=== PATIENT | male | born 1940 | race Caucasian/White ===

== ENCOUNTER 2017-08-06 19:14 | Inpatient (IN) | payer MEDICARE ==
[~2017-08-06] VITALS: Ht 177.8 cm; Wt 107.2 kg
[~2017-08-06 19:14] MED LIST: ASPI81TA82 PO; CARV25TA PO; GLIM4TAB PO; GLUCTAB PO; HYDR-2768 PO; LANTUS2P SC; LEVO100T60 PO; LISI-363 PO; NOVOLOGP2 SC; OMEP20TA PO; SIMV20TA PO; SIMV5TAB3 PO; VITA200017 PO
[2017-08-06 19:31] VITALS: BP 151/79; PULSE 80; RESP 22; TEMP 98.8; O2SAT 93
[2017-08-06] MEDS ORDERED: HYDR25TA5 PO (20:13)
[2017-08-06] MEDS ORDERED: VITA200013 PO (20:13)
[2017-08-06] MEDS ORDERED: ASPI81CH CHEW (20:13)
[2017-08-06] MEDS ORDERED: LEVO125T4 PO (20:13)
[2017-08-06] MEDS ORDERED: OMEP20TA PO (20:13)
[2017-08-06] MEDS ORDERED: CARV25TA PO (20:13)
[2017-08-06] MEDS ORDERED: LISI-515 PO (20:13)
[2017-08-06] MEDS ORDERED: INSU1.2I SQ (20:13)
[2017-08-06] MEDS ORDERED: SIMV20TA PO (20:13)
[2017-08-06] MEDS ORDERED: GLIM4TAB PO (20:13)
[2017-08-06] MEDS ORDERED: METF1000 PO (20:13)
[2017-08-06] MEDS ORDERED: NOVOLOGP2 SQ (20:13)
[2017-08-06] MEDS ORDERED: LANTUS2P SQ (20:13)
[2017-08-06] MEDS ORDERED: ONDANSETRON HCL 4 MG/2 ML VIAL IVP ONE (20:15)
[2017-08-06] MEDS ORDERED: SODIUM CHLORID 0.9% 500 ML INJ 500 ML IV ONE ×2 (20:15→21:45)
--- NOTE | 2017-08-06 20:15 | PD ---
HPI Chief Complaint: GI Complaint Time Seen by Provider: 19:57 Travel History International Travel<30 days: No Contact w/Intl Traveler<30days: No Traveled to known affect area: No History of Present Illness HPI This is a 76-year-old male who has a history of diverticulosis who presents to the emergency department with left lower quadrant abdominal pain that started this morning, cramping, moderate severity, associated with multiple episodes of vomiting. He denies any fevers or chills and denies any diarrhea. He's never had pain like this before. He has had a cholecystectomy in the past. He says his pain is nearly subsided but he still feels very nauseous and his says he was dry heaving at home. PFSH Past Medical History Arthritis: Yes Asthma: No Blood Disorders: No Heart Rhythm Problems: No Cancer: Yes Cardiovascular Problems: Yes High Cholesterol: Yes Chemotherapy: Yes (NOV 2012) Chest Pain: No Congestive Heart Failure: No COPD: No Diabetes: Yes Endocrine: Yes Gastrointestinal Disorders: Yes GERD: No Genitourinary: Yes (PROTEIN IN URINE; RENAL INSUFFIENCEY) Hepatitis: No Hiatal Hernia: No Hypertension: Yes Immune Disorder: No Kidney Stones: No Musculoskeletal: Yes Neurologic: No Psychiatric: No Respiratory: Yes Myocardial Infarction: No Radiation Therapy: No Renal Failure: No Sleep Apnea: Yes Thyroid Disease: Yes Ulcer: No Past Surgical History Abdominal Surgery: Yes (GALL BLADDER) AICD: No Cardiac Surgery: No Ear Surgery: No Endocrine Surgery: No Eye Surgery: No Genitourinary Surgery: No Gynecologic Surgery: No Joint Replacement: No Oral Surgery: No Pacemaker: No Thoracic Surgery: No Other Surgery: Yes (GALL BLADER 03/17; BONE MARROW BIOPSIES (2); PORT INSERTION 11/19) Social History Alcohol Use: Yes (LAST USED 01/06/06) Tobacco Use: No Substance Use: No Allergies-Medications (Allergen,Severity, Reaction): Coded Allergies: No Known Allergies (Verified Allergy, Severe, 01/08/06) Reported Meds & Prescriptions Reported Meds & Active Scripts Active Reported Aspirin 81 Mg Chew 81 Mg CHEW DAILY Hydrochlorothiazide 25 Mg Tab 25 Mg PO DAILY Lisinopril 20 Mg Tab 20 Mg PO DAILY Novolog Inj (Insulin Aspart) 1,000 Unit/10 Ml Vial 22 Units SQ DAILY Carvedilol 25 Mg Tab 25 Mg PO DAILY Levothyroxine (Levothyroxine Sodium) 125 Mcg Tab 112 Mcg PO DAILY Omeprazole 20 Mg Tab 20 Mg PO DAILY Vitamin D (Cholecalciferol) 2,000 Unit Cap 1,000 PO DAILY Glimepiride 4 Mg Tab 4 Mg PO BIDAC Lantus Inj (Insulin Glargine) 1,000 Unit/10 Ml Vial 50 Units SQ HS Metformin (Metformin HCl) 1,000 Mg Tab 1,000 Mg PO HS With meals Simvastatin 20 Mg Tab 20 Mg PO BID [place] Solostar Pen Inj (Insulin Glargine) 300 Unit/Ml Pen 1 Units SQ Review of Systems Except as stated in HPI: all other systems reviewed are Neg Physical Exam Narrative GENERAL:Well appearing, no acute distress SKIN: Focused skin assessment warm and dry. HEAD: Atraumatic. Normocephalic. EYES: Pupils equal and round. No injection or drainage. ENT: Moist mucous membranes NECK: Trachea midline. CARDIOVASCULAR: Regular rate and rhythm. No murmur appreciated. RESPIRATORY: Clear to auscultation. Breath sounds equal bilaterally. GASTROINTESTINAL: Abdomen soft, tender to palpation in the left lower quadrant with no rebound or guarding. MUSCULOSKELETAL: No obvious deformities. NEUROLOGICAL: Awake and alert. No obvious cranial nerve deficits. Moving all extremities. PSYCHIATRIC: Appropriate mood and affect; insight and judgment normal. Data Data Last Documented VS Vital Signs Date Time Temp Pulse Resp B/P (MAP) Pulse Ox O2 Delivery O2 Flow Rate FiO2 08/06/17 21:12 73 18 176/82 (113) 94 Room Air 08/06/17 19:31 98.8 Orders Orders Complete Blood Count With Diff (08/06/17 20:12) Comprehensive Metabolic Panel (08/06/17 20:12) Lipase (08/06/17 20:12) Urinalysis - C+S If Indicated (08/06/17 20:12) Iv Access Insert/Monitor (08/06/17 20:12) Ecg Monitoring (08/06/17 20:12) Oximetry (08/06/17 20:12) Ondansetron Inj (Zofran Inj) (08/06/17 20:15) Sodium Chloride 0.9% Flush (Ns Flush) (08/06/17 20:15) Sodium Chlorid 0.9% 500 Ml Inj (Ns 500 M (08/06/17 20:15) Ct Abd/Pel W/O Iv Contrast (08/06/17 ) Carvedilol (Coreg) (08/06/17 21:45) Hydrochlorothiazide (Hydrodiuril) (08/06/17 21:45) Sodium Chlorid 0.9% 500 Ml Inj (Ns 500 M (08/06/17 21:45) Ciprofloxacin 400 Mg Premix (Cipro 400 M (08/06/17 22:15) Morphine Inj (Morphine Inj) (08/06/17 22:30) Ondansetron Inj (Zofran Inj) (08/06/17 22:30) Admit Order (Ed Use Only) (08/06/17 22:20) Labs Laboratory Tests Test 08/06/17 20:35 White Blood Count 17.6 TH/MM3 Red Blood Count 4.29 MIL/MM3 Hemoglobin 12.1 GM/DL Hematocrit 37.1 % Mean Corpuscular Volume 86.5 FL Mean Corpuscular Hemoglobin 28.2 PG Mean Corpuscular Hemoglobin Concent 32.5 % Red Cell Distribution Width 14.6 % Platelet Count 237 TH/MM3 Mean Platelet Volume 8.5 FL Neutrophils (%) (Auto) 87.3 % Lymphocytes (%) (Auto) 5.0 % Monocytes (%) (Auto) 6.3 % Eosinophils (%) (Auto) 0.2 % Basophils (%) (Auto) 1.2 % Neutrophils # (Auto) 15.4 TH/MM3 Lymphocytes # (Auto) 0.9 TH/MM3 Monocytes # (Auto) 1.1 TH/MM3 Eosinophils # (Auto) 0.0 TH/MM3 Basophils # (Auto) 0.2 TH/MM3 CBC Comment AUTO DIFF Differential Comment AUTO DIFF CONFIRMED Platelet Estimate NORMAL Platelet Morphology Comment CLUMPED Red Cell Morphology Comment NORMAL Blood Urea Nitrogen 33 MG/DL Creatinine 2.40 MG/DL Random Glucose 171 MG/DL Total Protein 6.6 GM/DL Albumin 3.2 GM/DL Calcium Level 7.7 MG/DL Alkaline Phosphatase 93 U/L Aspartate Amino Transf (AST/SGOT) 18 U/L Alanine Aminotransferase (ALT/SGPT) 18 U/L Total Bilirubin 0.5 MG/DL Sodium Level 137 MEQ/L Potassium Level 3.9 MEQ/L Chloride Level 99 MEQ/L Carbon Dioxide Level 30.1 MEQ/L Anion Gap 8 MEQ/L Estimat Glomerular Filtration Rate 26 ML/MIN Lipase 310 U/L MDM Medical Decision Making Medical Screen Exam Complete: Yes Emergency Medical Condition: Yes Interpretation(s) afebrile, no tachycardia, mild hypertension leukocytosis 87% neutrophils GFR is 26 down from a baseline of 46 Last 24 hours Impressions Abdomen/Pelvis CT 08/06/17 0000 Signed Impressions: Service Date/Time: Sunday, August 06, 2017 21:43 - CONCLUSION: 1. 4-5mm calculus in the proximal left ureter with mild hydronephrosis. 2. Mild diverticulosis. 3. 2 left renal calculi. Nate Celeste MD Differential Diagnosis Diverticulitis, nephrolithiasis, pyelonephritis, pancreatitis Narrative Course This is a 76-year-old male who presents to the emergency department with vomiting and abdominal discomfort for 12 hours. Patient was placed on a monitor and an IV was established. He was given IV hydration and antiemetics as well as pain control. Labs demonstrate a leukocytosis. Patient does have a history of CLL that this he says is above his baseline of about 11. Creatinine is 2.4 which is increased from his baseline of 1.[address] abdomen and pelvis demonstrates a 4-5 mm stone in the left ureter with hydronephrosis. Patient continued to vomit in the emergency department and had poorly controlled pain. I think he requires admission for symptomatic control and IV hydration. He was given a dose of ciprofloxacin empirically in the setting of leukocytosis. Physician Communication Physician Communication Discussed with Dr. cisneros Diagnosis Primary Impression: Nephrolithiasis Additional Impression: Acute renal insufficiency Admitting Information Admitting Physician Requests: Admit Darline Verduzco MD Aug 06, 2017 20:15
[2017-08-06 20:49] LABS: AUTOMATED NEUTROPHIL # 15.4 TH/MM3 (1.8-7.7); BASOPHIL # 0.2 TH/MM3 (0-0.2); BASOPHIL % 1.2 % (0.0-2.0); EOSINOPHIL % 0.2 % (0.0-4.0); HEMATOCRIT 37.1 % (39.0-51.0); LYMPHOCYTE # 0.9 TH/MM3 (1.0-4.8); MEAN CELL VOLUME 86.5 FL (80.0-100.0); MEAN CORPUSCULAR HEMOGLOBIN 28.2 PG (27.0-34.0); MEAN CORPUSCULAR HGB CONC 32.5 % (32.0-36.0); MONO % 6.3 % (0.0-8.0); NEUT % 87.3 % (16.0-70.0); PLATELET COUNT 237 TH/MM3 (150-450); RED BLOOD COUNT 4.29 MIL/MM3 (4.50-5.90); RED CELL DISTRIBUTION WIDTH 14.6 % (11.6-17.2); WHITE BLOOD COUNT 17.6 TH/MM3 (4.0-11.0)
[2017-08-06 20:58] LABS: CHLORIDE 99 MEQ/L (98-107); POTASSIUM 3.9 MEQ/L (3.5-5.1); SODIUM (NA) 137 MEQ/L (136-145)
[2017-08-06 21:02] LABS: ANION GAP 8 MEQ/L (5-15); BICARBONATE 30.1 MEQ/L (21.0-32.0); BLOOD UREA NITROGEN 33 MG/DL (7-18)
[2017-08-06 21:04] LABS: HEMO FLAGS AUTO DIFF
[2017-08-06 21:05] LABS: ALT (GPT) 18 U/L (12-78); AST (GOT) 18 U/L (15-37); GLOMERULAR FILTRATION RATE 26 ML/MIN (>89)
[2017-08-06 21:06] LABS: TOTAL BILIRUBIN ADULT 0.5 MG/DL (0.2-1.0)
[2017-08-06 21:08] LABS: ALKALINE PHOSPHATASE 93 U/L (45-117)
[2017-08-06 21:11] VITALS: RESP 18; O2SAT 94
[2017-08-06 21:12] VITALS: BP 176/82; PULSE 73; RESP 18; O2SAT 94
[2017-08-06] MEDS ORDERED: HYDROCHLOROTHIAZIDE 25 MG TAB PO ONE (21:45)
[2017-08-06] MEDS ORDERED: CARVEDILOL 12.5 MG TAB PO ONE (21:45)
[2017-08-06 22:00] LABS: PLATELET ESTIMATE SMEAR NORMAL (NORMAL); PLATELET MORPHOLOGY CLUMPED (NORMAL); SCAN/DIFF AUTO DIFF CONFIRMED
--- NOTE | 2017-08-06 22:04 | RADRPT ---
EXAM DATE/TIME: 08/06/2017 21:43 [facility] COMPARISON: No previous studies available for comparison. INDICATIONS : Nausea and vomiting x 12 hrs. LLQ pain. Patient states he is unable to urinate. ORAL CONTRAST: No oral contrast ingested. RADIATION DOSE: 24.62 CTDIvol (mGy) MEDICAL HISTORY : Diabetes mellitus type 2. Hypertension. Leukemia.CLL SURGICAL HISTORY : Cholecystectomy. CABG ENCOUNTER: Initial ACUITY: 1 day PAIN SCALE: 8/10 LOCATION: Left lower quadrant TECHNIQUE: Volumetric scanning of the abdomen and pelvis was performed. Using automated exposure control and ad justment of the mA and/or kV according to patient size, radiation dose was kept as low as reasonably achievable to obtain optimal diagnostic quality images. DICOM format image data is available electro nically for review and comparison. FINDINGS: LOWER LUNGS: The visualized lower lungs are clear. LIVER: Homogeneous density without lesion. There is no dilation of the biliary tree. Status post cholecyste ctomy. There are multiple calcified small granulomas. SPLEEN: Normal size without lesion. PANCREAS: Within normal limits. KIDNEYS: Normal in size and shape. There is no focal mass. There are small nonobstructing left renal calculi. There is a 4-5 mm calculus in the proximal left ureter with mild hydronephrosis. ADRENAL GLANDS: Within normal limits. VASCULAR: There is no aortic aneurysm. BOWEL/MESENTERY: The stomach, small bowel, and colon demonstrate no acute abnormality. Multiple diverticuli are presen t. There is no free intraperitoneal air or fluid. ABDOMINAL WALL: Within normal limits. RETROPERITONEUM: There is no lymphadenopathy. BLADDER: No wall thickening or mass. REPRODUCTIVE: Within normal limits. INGUINAL: There is no lymphadenopathy or hernia. MUSCULOSKELETAL: Within normal limits for patient age. CONCLUSION: 1. 4-5mm calculus in the proximal left ureter with mild hydronephrosis. 2. Mild diverticulosis. 3. 2 left renal calculi. Nate Celeste MD on August 06, 2017 at 21:59 Board Certified Radiologist. This report was verified electronically.
[2017-08-06] MEDS ORDERED: CIPROFLOXACIN 400 MG PREMIX 200 ML IV ONE (22:15)
[2017-08-06] MEDS ORDERED: ONDANSETRON HCL 4 MG/2 ML VIAL IV ONE (22:30)
[2017-08-06] MEDS ORDERED: NALOXONE HCL 0.4 MG/ML AMP IV PUSH PRN (22:30)
[2017-08-06] MEDS ORDERED: MORPHINE SULFATE 4 MG/ML INJ IV PUSH PRN ×2 (22:30)
[2017-08-06] MEDS ORDERED: MORPHINE SULFATE 4 MG/ML INJ IV PUSH ONE (22:30)
[2017-08-06] MEDS ORDERED: GLUCAGON 1 MG/ML VIAL OTHER PRN (22:45)
[2017-08-06] MEDS ORDERED: DEXTROSE 50% IN WATER 50 ML VIAL(D50) IV PUSH PRN (22:45)
[2017-08-06] MEDS: SODIUM CHLOR 0.9% 1000 ML INJ 1,000 ML IV SCH (23:40)
[2017-08-06] MEDS: ONDANSETRON HCL 4 MG/2 ML VIAL IV PUSH PRN (23:45)
[2017-08-07 00:35] VITALS: BP 153/79; PULSE 67; RESP 18; TEMP 97.2; O2SAT 90
[2017-08-07] MEDS: SODIUM CHLORIDE 0.9% FLUSH 10 ML FLUSH IV FLUSH PRN (02:07)
[2017-08-07] MEDS: ONDANSETRON HCL 4 MG/2 ML VIAL IV PUSH PRN (03:28)
[2017-08-07 03:42] LABS: BLOOD, URINE SMALL (NEG); GLUCOSE,URINE NEG (NEG); KETONE, URINE NEG (NEG); NITRITE,URINE NEG (NEG); PH, URINE 5.5 (5.0-8.5)
[2017-08-07 03:49] LABS: COMMENT (UR) CULT NOT INDICATED; CULTURE IF INDICATED CULT NOT INDICATED; RBC, URINE 0-3 /hpf (0-3); SQUAMOUS EPITHELIAL CELL URINE 0-5 /hpf (0-5); URINE COLOR YELLOW (YELLW/STRAW); WBC, URINE 0-2 /hpf (0-5)
[2017-08-07] MEDS ORDERED: LEVOTHYROXINE SODIUM 125 MCG TAB PO SCH (07:00)
[2017-08-07 07:15] LABS: AUTOMATED NEUTROPHIL # 14.3 TH/MM3 (1.8-7.7); BASOPHIL % 0.3 % (0.0-2.0); EOSINOPHIL % 0.3 % (0.0-4.0); HEMATOCRIT 33.9 % (39.0-51.0); HEMO FLAGS DIFF FINAL; LYMPH % 6.3 % (9.0-44.0); MEAN CELL VOLUME 85.7 FL (80.0-100.0); MEAN CORPUSCULAR HEMOGLOBIN 27.1 PG (27.0-34.0); MEAN CORPUSCULAR HGB CONC 31.6 % (32.0-36.0); MONO % 7.5 % (0.0-8.0); NEUT % 85.6 % (16.0-70.0); PLATELET COUNT 207 TH/MM3 (150-450); RED BLOOD COUNT 3.95 MIL/MM3 (4.50-5.90); WHITE BLOOD COUNT 16.5 TH/MM3 (4.0-11.0)
[2017-08-07 07:41] LABS: BICARBONATE 27.8 MEQ/L (21.0-32.0)
[2017-08-07] MEDS: INSULIN ASPART SUPPLEMENTAL SCALE SQ SCH ×4 (07:58→21:00)
[2017-08-07 08:00] VITALS: BP 134/69; PULSE 94; RESP 18; TEMP 97.1; O2SAT 96
[2017-08-07] MEDS: PRAVASTATIN SOD 40 MG TAB PO SCH ×2 (08:00→21:26)
[2017-08-07] MEDS: PANTOPRAZOLE SOD 20 MG DELAYED RELEASE TAB PO SCH ×2 (08:00→08:06)
[2017-08-07] MEDS: CARVEDILOL 12.5 MG TAB PO SCH (08:01)
[2017-08-07] MEDS: ASPIRIN 81 MG CHEW TAB CHEW SCH (08:01)
[2017-08-07] MEDS: SODIUM CHLOR 0.9% 1000 ML INJ 1,000 ML IV SCH ×2 (08:05→18:11)
--- NOTE | 2017-08-07 08:35 | MH ---
cc: RAYNE MULLINS M.D. DATE OF ADMISSION: 08/06/2017 PERTINENT HISTORY This is a 76-year-old white male who presented to the emergency room last evening with left lower quadrant abdominal pain and flank pain. It had started earlier that morning, he had several episodes of vomiting and he had no diarrhea, rectal bleeding, constipation. He has history of diverticulosis but no prior diverticulitis. In the ED he had a CAT scan that showed a 4-5 mm calculus in the proximal left ureter with mild hydronephrosis. He was admitted for pain control and because of the recurrent vomiting and being a little bit dehydrated. PAST MEDICAL HISTORY 1. Hypertension. 2. Hyper___ 3. Type 2 diabetes with diabetic nephropathy. 4. He has had coronary artery disease with prior AL and prior five vessel coronary artery bypass in 2005. 5. He has had mild bilateral carotid artery atherosclerosis. 6. He has gastroesophageal reflux disease. 7. Hypothyroidism. 8. Hyperlipidemia. 9. He has had history of colon polyps. 10. Diverticulosis. 11. Some thyroid nodules. 12. He has a history of CLL that he has been followed by Dr. Bhatti. 13. Stage III chronic kidney disease. He has had no stroke, no seizures. No peptic ulcer disease. No lung disease. PAST SURGICAL HISTORY 1. Five-vessel coronary artery bypass. 2. Laparoscopic cholecystectomy. 3. Tonsillectomy and adenoidectomy. 4. Left cataract extraction, lens implant. 5. Colonoscopy 03/17/2007 with two polyps removed. 6. Colonoscopy 04/06/2011 that showed some diverticulosis. ALLERGIES NIFEDIPINE CAUSED DIZZINESS. MEDICATIONS 1. Aspirin 81 mg a day. 2. Omeprazole 20 mg a day. 3. Carvedilol 25 mg daily. 4. Glimepiride 4 mg twice a day. 5. Hydrochlorothiazide 25 mg daily. 6. Levothyroxine 112 mcg one daily. 7. Lisinopril 20 mg a day. 8. Metformin 1000 mg twice a day. 9. He uses NovoLog insulin 22 units with breakfast, 24 units with his dinner. 10. He is on Toujeo Solostar 300 units per 3 mL, he takes 50 units at bedtime. 11. He is on vitamin D3 1000 units a day. 12. Simvastatin 20 mg a day. FAMILY HISTORY His father in his 80s of Parkinson's disease and also had colon cancer. His mother had heart disease and of that at 84. SOCIAL HISTORY He is . He quit smoking at age 40, smoked three packs a day for 20 years prior to quitting. He rarely has a glass of wine. 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 REVIEW OF SYSTEMS GENERAL: No fever, chills or sweats. HEENT: Without complaints. CARDIOVASCULAR: No chest pain, orthopnea, PND. PULMONARY: No cough, hemoptysis, wheezing. GI: Had the vomiting, no diarrhea, melena or rectal bleeding. Left flank and left lower quadrant pain. EXTREMITIES: Without swelling. No tenderness and no pain. SKIN: Without rash. NEURO: No focal signs or confusion. PHYSICAL EXAMINATION GENERAL: Well-developed, well-nourished white male who is in no distress. His pain has lessened. HEENT: Pupils equal. Sclerae nonicteric. Nose without lesion. Mouth without inflammation or lesion. NECK: Without JVD. No obvious bruits. HEART: Regular rate and rhythm. No murmur. LUNGS: Appear clear. ABDOMEN: Abdomen is soft, nontender, no masses. No rebound. EXTREMITIES: No edema. Pulses palpated. SKIN: Negative. NEURO: Oriented x3. Cranial nerves, motor sensory intact. LABORATORY DATA His white count was 17.6, hemoglobin 12.1, hematocrit 37.1, 87.3% neutrophils, 5% lymphs, platelets were normal. His sodium was 137, potassium 3.9, chloride 99, CO2 30.1. His BUN was 33, creatinine 2.40. His last one done as an outpatient his BUN was 25, creatinine 1.75 and GFR 37 then. His AST, ALT, alkaline phosphatase, bilirubin were normal. Total protein and albumin normal. IMAGING STUDIES CT scan as mentioned showed a 4-5 mm calculus in the proximal left ureter with mild hydronephrosis. There was mild diverticulosis and there is two left renal calculi. ASSESSMENT 1. Left ureteral calculus with mild hydronephrosis. 2. Persistent left renal calculi. 3. Acute on chronic kidney disease. 4. Stage III chronic kidney disease. 5. Type 2 diabetes mellitus with diabetic nephropathy. 6. Hypertension. 7. Hyperlipidemia. 8. Coronary artery disease with prior AL and prior five vessel coronary artery bypass. 9. Mild carotid artery atherosclerosis. 10. Erectile dysfunction. 11. Diverticulosis. 12. Gastroesophageal reflux disease. 13. Hyperlipidemia. 14. Hypothyroidism. 15. CLL. 16. History of colon polyps. 17. Vitamin D insufficiency. PLAN His pain seems to be improved but he has had morphine recently. He still has some nausea, he is on ondansetron for that. Will continue the IV fluids for now to correct his mild dehydration. His white count elevation as probably from stress reaction from his vomiting. His last white count done as an outpatient for monitoring of his CLL showed a white count 9.5 on 06/02/17. Will try him on some diet today and advance as tolerated. Will get a urology consult. Whenever his dehydration is improved and he is having no significant pain he can be discharged to follow up with urology for his renal calculi. We will just cover him with a sliding scale currently for his diabetes because of his nausea and he had not been eating yet. We will resume his home meds other than I did hold the hydrochlorothiazide in view of his dehydration. Will hold his diabetes pills and insulin for now since he will be on sliding scale. He was ordered SCDs and EUGENIE asif for DVT prophylaxis last night. MD MIGUEL Morales/PAULA /6:59 AM /7:56 AM
[2017-08-07] MEDS ORDERED: LISINOPRIL 20 MG TAB PO SCH (09:00)
--- NOTE | 2017-08-07 10:01 | RADRPT ---
EXAM DATE/TIME: 08/07/2017 09:44 [facility] COMPARISON: CT ABDOMEN & PELVIS W/O CONTRAST, August 06, 2017, 21:43. INDICATIONS : Calculi, admitted to hospital with severe left lower back pain MEDICAL HISTORY : Leukemia. Diabetes mellitus type II. SURGICAL HISTORY : CABG. ENCOUNTER: Subsequent ACUITY: 2 days PAIN SCORE: 0/10 LOCATION: Left lower quadrant low back FINDINGS: 2 supine frontal views of the abdomen demonstrate a 2 mm density overlying the left mid kidney likely representing one of the nonobstructing stones documented on yesterday's CT. The ureteral stones are not visualized on this examination. Kidneys are partially obscured by overlying bowel gas and stool. There are stable phleboliths in the inferior pelvis bilaterally. Cholecystectomy clips are present. P atient is post median sternotomy. CONCLUSION: Given the overlying bowel gas and stool along with patient body habitus along with the small size of the stones, the left ureteral stones are not visualized. If there is a current need to evaluate the p osition we could perform low dose CT. Agustin Reed MD on August 07, 2017 at 9:55 Board Certified Radiologist. This report was verified electronically.
[2017-08-07] MEDS: TAMSULOSIN HCL 0.4 MG CAP PO SCH (10:50)
[2017-08-07 12:00] VITALS: BP 121/65; PULSE 60; RESP 18; TEMP 96.9; O2SAT 95
--- NOTE | 2017-08-07 14:22 | MB ---
cc: TAMARA COBOS MD DATE OF CONSULTATION: 08/07/2017. REASON FOR CONSULTATION: 1. Left flank pain 2. Left proximal 4 mm ureteral stone with mild hydronephrosis. HISTORY OF PRESENT ILLNESS: The patient is a 76-year-old male with history of diabetes who presented to the emergency room last evening with complaints of left lower quadrant pain radiating to his flanks which started yesterday morning. He denies prior episodes of pain in the past. He describes the pain as sharp, shooting and stabbing and 8/10 at its worst. He also had several episodes of nausea and vomiting but denied any fevers, chills, dysuria, hematuria. He came to the emergency room where he had a CT scan which showed a 5 mm left proximal ureteral stone without hydronephrosis. He was admitted for pain control and urology was consulted. He denies prior history of kidney stones in the past but he has a significant family history of stones with both his brother having stones. He denies any baseline lower urinary tract symptoms. He has a good stream. He feels like he empties well. He gets up twice a night. He denies any history of urinary tract infections or family history of prostate cancer. He denies chest pain or shortness of breath. PAST MEDICAL HISTORY: 1. Hypertension. 2. Hyperlipidemia. 3. Type 2 diabetes. 4. Coronary artery disease. 5. History of myocardial infarction. 6. Gastroesophageal reflux disease (GERD). 7. Hypothyroidism. 8. Diverticulosis. 9. History of chronic lymphocytic leukemia. 10. Chronic kidney disease stage III. PAST SURGICAL HISTORY: 1. He has had a five-vessel coronary artery bypass. 2. Laparoscopic cholecystectomy. 3. Tonsillectomy and adenoidectomy. 4. Left cataract insertion. 5. Colonoscopy. ALLERGIES: 1. NIFEDIPINE. MEDICATIONS: 1. Aspirin. 2. Omeprazole. 3. Carvedilol. 4. Glimepiride. 5. Hydrochlorothiazide. 6. Levothyroxine. 7. Lisinopril. 8. Metformin. 9. NovoLog insulin. 10. Simvastatin. FAMILY HISTORY: There is a family history of Parkinson's disease and colon cancer. Denies any urolithiasis or genitourinary malignancy. SOCIAL HISTORY: He is . He quit smoking at age 40. He smoked three packs a day for 20 years. He has occasional alcohol. He denies illicit drugs. REVIEW OF SYSTEMS: See the history of present illness, otherwise all systems reviewed and otherwise negative. PHYSICAL EXAMINATION: VITAL SIGNS: Temperature 97.2, pulse 67, respirations 18, blood pressure 153/79, satting 98% on room air. GENERAL: In general, he is alert and oriented times three and in no apparent distress. He is a pleasant and cooperative gentleman. HEAD, EYES, EARS, NOSE, THROAT: Head is normocephalic and atraumatic. No scleral icterus. Extraocular muscles intact. NECK: The neck is supple. Trachea is midline. No jugular venous distention. SKIN: No ulcers or rashes seen. The mucous membranes are pink and moist. LUNGS: Clear to auscultation bilaterally. No wheezes, rales or rhonchi. HEART: Regular rate and rhythm. No murmurs, rubs or gallops. ABDOMEN: The abdomen is soft, nontender but distended and tympanic. Positive bowel sounds. No peritoneal signs. GENITOURINARY EXAM: His penis is uncircumcised. Testes descended bilaterally and normal in size and consistency without mass. No costovertebral angle tenderness bilaterally. RECTAL: Exam deferred at this time. EXTREMITIES: Nontender. No cyanosis, clubbing or edema. PSYCHIATRIC: Normal affect. NEUROLOGIC: Cranial nerves II through XII intact. Strength is 5/5 in all four extremities. LABS: Sodium of 136, potassium 4.0, chloride of 100, carbon dioxide 27.8, BUN 28, creatinine 2.7, glucose 176. White count ____, hemoglobin 10.7, hematocrit 33.9, platelet count 207,000. Urine just showed small blood. IMAGING STUDIES: CT of the abdomen and pelvis without contrast images were reviewed and I agree with the radiologist's report. The patient has an obstructing left proximal stone causing mild hydronephrosis as well as two small nonobstructing left renal stones causing diverticulosis. ASSESSMENT AND PLAN: The patient is a 76-year-old male with history of diabetes who presents with left flank pain and nausea and who was found to have an obstructing 5 mm left mid ureteral stone with acute renal failure. PLAN: 1. We will manage conservatively at this and give the patient a chance to pass the stone. 2. Will start him on Flomax and oral pain medications. 3. Will watch him very closely as if his creatinine continues to rise or his clinical condition deteriorates, then he will need a cystoscopy and left ureteral stent insertion during this admission. 4. Otherwise, as long as his pain remains well-controlled, he can follow up as an outpatient and the stone can be treated as an outpatient. MD NOVA Bruce/JULIÁN /1:25 PM /2:06 PM [facility]
[2017-08-07 16:00] VITALS: BP 154/77; PULSE 59; RESP 18; TEMP 97.3; O2SAT 94
[2017-08-07] MEDS: oxyCODONE/ACETAMINOPHEN 5 MG/325 MG TAB PO PRN ×2 (16:20→21:26)
[2017-08-07 20:00] VITALS: BP 176/90; PULSE 87; RESP 20; TEMP 98.1; O2SAT 94
[2017-08-07] MEDS: LISINOPRIL 20 MG TAB PO SCH (22:19)
[2017-08-08] VITALS: BP 117/63; PULSE 64; RESP 18; TEMP 98.1; O2SAT 93
[2017-08-08] MEDS: SODIUM CHLOR 0.9% 1000 ML INJ 1,000 ML IV SCH ×2 (03:05→14:51)
[2017-08-08] MEDS: oxyCODONE/ACETAMINOPHEN 5 MG/325 MG TAB PO PRN ×5 (03:05→20:03)
[2017-08-08 03:34] VITALS: BP 143/80; PULSE 64; RESP 20; TEMP 97.6; O2SAT 94
[2017-08-08] MEDS: ONDANSETRON HCL 4 MG/2 ML VIAL IV PUSH PRN ×4 (03:38→20:04)
[2017-08-08] MEDS: LEVOTHYROXINE SODIUM 112 MCG TAB PO SCH (05:45)
[2017-08-08 06:12] LABS: HEMATOCRIT 29.9 % (39.0-51.0); MEAN CELL VOLUME 86.4 FL (80.0-100.0); MEAN CORPUSCULAR HEMOGLOBIN 28.8 PG (27.0-34.0); MEAN CORPUSCULAR HGB CONC 33.3 % (32.0-36.0); PLATELET COUNT 178 TH/MM3 (150-450); RED BLOOD COUNT 3.46 MIL/MM3 (4.50-5.90); RED CELL DISTRIBUTION WIDTH 14.9 % (11.6-17.2); REVIEW FLAG FINAL; WHITE BLOOD COUNT 13.8 TH/MM3 (4.0-11.0)
[2017-08-08 06:19] LABS: POTASSIUM 3.8 MEQ/L (3.5-5.1)
[2017-08-08 07:01] LABS: BICARBONATE 27.8 MEQ/L (21.0-32.0)
--- NOTE | 2017-08-08 07:08 | HHI.PR ---
Subjective Remarks Still having some intermittent nausea and flank pain. Seen by urology yesterday. Objective Vitals Vital Signs Date Time Temp Pulse Resp B/P (MAP) Pulse Ox O2 Delivery O2 Flow Rate FiO2 08/08/17 03:34 97.6 64 20 143/80 (101) 94 08/08/17 00:00 98.1 64 18 117/63 (81) 93 08/07/17 20:00 98.1 87 20 176/90 (118) 94 08/07/17 16:00 97.3 59 18 154/77 (102) 94 08/07/17 12:00 96.9 60 18 121/65 (83) 95 08/07/17 08:00 97.1 94 18 134/69 (90) 96 Result Diagram: 08/08/17 0545 08/08/17 0545 Other Results Laboratory Tests Test 08/06/17 20:35 08/07/17 03:30 08/07/17 07:05 08/08/17 05:45 White Blood Count 17.6 TH/MM3 16.5 TH/MM3 13.8 TH/MM3 Red Blood Count 4.29 MIL/MM3 3.95 MIL/MM3 3.46 MIL/MM3 Hemoglobin 12.1 GM/DL 10.7 GM/DL 10.0 GM/DL Hematocrit 37.1 % 33.9 % 29.9 % Mean Corpuscular Volume 86.5 FL 85.7 FL 86.4 FL Mean Corpuscular Hemoglobin 28.2 PG 27.1 PG 28.8 PG Mean Corpuscular Hemoglobin Concent 32.5 % 31.6 % 33.3 % Red Cell Distribution Width 14.6 % 14.0 % 14.9 % Platelet Count 237 TH/MM3 207 TH/MM3 178 TH/MM3 Mean Platelet Volume 8.5 FL 8.1 FL 8.6 FL Neutrophils (%) (Auto) 87.3 % 85.6 % Lymphocytes (%) (Auto) 5.0 % 6.3 % Monocytes (%) (Auto) 6.3 % 7.5 % Eosinophils (%) (Auto) 0.2 % 0.3 % Basophils (%) (Auto) 1.2 % 0.3 % Neutrophils # (Auto) 15.4 TH/MM3 14.3 TH/MM3 Lymphocytes # (Auto) 0.9 TH/MM3 1.0 TH/MM3 Monocytes # (Auto) 1.1 TH/MM3 1.2 TH/MM3 Eosinophils # (Auto) 0.0 TH/MM3 0.0 TH/MM3 Basophils # (Auto) 0.2 TH/MM3 0.0 TH/MM3 CBC Comment AUTO DIFF DIFF FINAL Differential Comment AUTO DIFF CONFIRMED Platelet Estimate NORMAL Platelet Morphology Comment CLUMPED Red Cell Morphology Comment NORMAL Blood Urea Nitrogen 33 MG/DL 38 MG/DL Creatinine 2.40 MG/DL 2.70 MG/DL Random Glucose 171 MG/DL 176 MG/DL Total Protein 6.6 GM/DL Albumin 3.2 GM/DL Calcium Level 7.7 MG/DL 7.7 MG/DL Alkaline Phosphatase 93 U/L Aspartate Amino Transf (AST/SGOT) 18 U/L Alanine Aminotransferase (ALT/SGPT) 18 U/L Total Bilirubin 0.5 MG/DL Sodium Level 137 MEQ/L 136 MEQ/L 135 MEQ/L Potassium Level 3.9 MEQ/L 4.0 MEQ/L 3.8 MEQ/L Chloride Level 99 MEQ/L 100 MEQ/L 100 MEQ/L Carbon Dioxide Level 30.1 MEQ/L 27.8 MEQ/L Anion Gap 8 MEQ/L 8 MEQ/L Estimat Glomerular Filtration Rate 26 ML/MIN 23 ML/MIN Lipase 310 U/L Urine Color YELLOW Urine Turbidity CLEAR Urine pH 5.5 Urine Specific Banks 1.015 Urine Protein 300 OR GREATER mg/dL Urine Glucose (UA) NEG mg/dL Urine Ketones NEG mg/dL Urine Occult Blood SMALL Urine Nitrite NEG Urine Bilirubin NEG Urine Leukocyte Esterase NEG Urine RBC 0-3 /hpf Urine WBC 0-2 /hpf Urine Squamous Epithelial Cells 0-5 /hpf Microscopic Urinalysis Comment CULT NOT INDICATED Imaging Last Impressions Abdomen X-Ray 08/07/17 0000 Signed Impressions: Service Date/Time: Monday, August 07, 2017 09:44 - CONCLUSION: Given the overlying bowel gas and stool along with patient body habitus along with the small size of the stones, the left ureteral stones are not visualized. If there is a current need to evaluate the position we could perform low dose CT. Agustin Reed MD Abdomen/Pelvis CT 08/06/17 0000 Signed Impressions: Service Date/Time: Sunday, August 06, 2017 21:43 - CONCLUSION: 1. 4-5mm calculus in the proximal left ureter with mild hydronephrosis. 2. Mild diverticulosis. 3. 2 left renal calculi. Nate Celeste MD Objective Remarks Exam: WDWNWM in no distress HEENT: Pupils equal, no scleral icterus, mouth negative Heart: RRR Lungs: Clear Abdomen: soft, nontender Extremities: No edema Neuro: Alert, oriented. A/P Assessment and Plan Assessment: --Left ureteral calculus with mild hydronephrosis --Acute on chronic disease (history of stage 3 CKD) --Mild dehydration that was secondary to vomiting --Type 2 diabetes mellitus with nephropathy --Hypertension --Hyperlipidemia --Hypothyroidism --Coronary artery disease with prior [place]/prior CABG --CLL --GERD --Mild bilateral carotid artery atherosclerosis Plan: Continue IV fluids and monitoring of his kidney function He is on sliding scale insulin coverage currently for his diabetes. He may require a urinary procedure to extract the stone--as per Dr Mccartney. Continue current medications. He is on TEDS/SCDS for DVT prophylaxis Pb Oh MD Aug 08, 2017 07:08
[2017-08-08 08:00] VITALS: BP 145/84; PULSE 67; RESP 18; TEMP 97.4; O2SAT 92
[2017-08-08] MEDS: INSULIN ASPART SUPPLEMENTAL SCALE SQ SCH ×4 (08:00→20:12)
[2017-08-08] MEDS: PANTOPRAZOLE SOD 20 MG DELAYED RELEASE TAB PO SCH (08:15)
[2017-08-08] MEDS: PRAVASTATIN SOD 40 MG TAB PO SCH ×2 (08:15→20:04)
[2017-08-08] MEDS: LISINOPRIL 20 MG TAB PO SCH ×2 (08:15→20:05)
[2017-08-08] MEDS: TAMSULOSIN HCL 0.4 MG CAP PO SCH (08:16)
[2017-08-08] MEDS: CARVEDILOL 12.5 MG TAB PO SCH (08:16)
[2017-08-08] MEDS: ASPIRIN 81 MG CHEW TAB CHEW SCH (08:16)
[2017-08-08 08:27] LABS: CALCIUM-PROTEIN CORRECTED 7.5 MG/DL (8.5-10.1)
[2017-08-08 12:00] VITALS: BP 107/59; PULSE 56; RESP 18; TEMP 97.4; O2SAT 96
[2017-08-08 16:00] VITALS: BP 165/85; PULSE 70; RESP 20; TEMP 98.1; O2SAT 93
--- NOTE | 2017-08-08 16:47 | HHI.PR ---
Subjective Patient symptoms today had zee placed for urinary retention. c/o penile pain from catheter. Denies flank pain, nausea, vomiting, fevers. Percocet helps with pain. Objective Vital Signs Vital Signs Date Time Temp Pulse Resp B/P (MAP) Pulse Ox O2 Delivery O2 Flow Rate FiO2 08/08/17 12:00 97.4 56 18 107/59 (75) 96 08/08/17 08:00 97.4 67 18 145/84 (104) 92 08/08/17 03:34 97.6 64 20 143/80 (101) 94 08/08/17 00:00 98.1 64 18 117/63 (81) 93 08/07/17 20:00 98.1 87 20 176/90 (118) 94 Intake & Output 08/08/17 08/08/17 07:00 19:00 Intake Total 1440 ml 630 ml Output Total 325 ml 150 ml Balance 1115 ml 480 ml Intake Oral 240 ml 0 ml IV Total 1200 ml 630 ml Output Urine Total 325 ml 150 ml Bladder Scan Volume Amount 694 ml 999 ml # Voids 2 1 # Bowel Movements 0 0 Result Diagram: 08/08/17 0545 08/08/17 0545 Objective Remarks NAD. abd obese but soft zee clear Medications and IVs Current Medications Medications (Trade) Dose Ordered Sig/Carmelo Route Start Time Stop Time Status Last Admin (NS Flush) 2 ml UNSCH PRN IV FLUSH 08/06/17 20:15 08/07/17 02:07 (Zofran Inj) 4 mg Q4HR PRN IV PUSH 08/06/17 22:30 08/08/17 12:30 Sodium Chloride 1,000 ml @ 100 mls/hr Q10H IV 08/06/17 22:30 08/08/17 14:51 (NovoLOG SUPPLEMENTAL SCALE) 1 ACHS SLIDING SCALE SQ 08/07/17 08:00 08/08/17 12:27 (D50w (Vial) Inj) 50 ml UNSCH PRN IV PUSH 08/06/17 22:45 (Glucagon Inj) 1 mg UNSCH PRN OTHER 08/06/17 22:45 (Aspirin Chew) 81 mg DAILY CHEW 08/07/17 09:00 08/08/17 08:16 (Coreg) 25 mg DAILY PO 08/07/17 09:00 9/25/17 08:16 (Protonix) 20 mg DAILY PO 08/07/17 07:15 08/08/17 08:15 (Pravachol) 40 mg BID PO 08/07/17 09:00 08/08/17 08:15 (Flomax) 0.4 mg DAILY PO 08/07/17 10:00 08/08/17 08:16 (Percocet 5-325 Mg) 2 tab Q4H PRN PO 08/07/17 13:30 08/08/17 14:51 (Percocet 5-325 Mg) 1 tab Q4H PRN PO 08/07/17 13:30 (Prinivil) 20 mg BID PO 08/07/17 22:55 08/08/17 08:15 (Synthroid) 112 mcg DAILY@0600 PO 08/08/17 06:00 08/08/17 05:45 Assessment and Plan Assessment and Plan 76 yo male with left ureteral calculi, urinary retention, ARF -Continue zee catheter. Will void trial as outpatient. Already on Flomax for stones -Repeat BMP in a.m. -If he remains pain free and creatinine improves, then can d/c home and treated as outpatient. However, if Creatinine continues to rise or flank pain returns, will need cystoscopy, stent insertion. Ramiro Mccartney MD Aug 08, 2017 16:47
[2017-08-08 20:00] VITALS: BP 148/75; PULSE 71; RESP 18; TEMP 96.4; O2SAT 95
[2017-08-09] VITALS: BP 172/83; PULSE 72; RESP 20; TEMP 96.4; O2SAT 94
[2017-08-09] MEDS: ONDANSETRON HCL 4 MG/2 ML VIAL IV PUSH PRN ×2 (01:06→06:38)
[2017-08-09] MEDS: oxyCODONE/ACETAMINOPHEN 5 MG/325 MG TAB PO PRN ×3 (01:07→13:41)
[2017-08-09] MEDS: SODIUM CHLOR 0.9% 1000 ML INJ 1,000 ML IV SCH ×3 (01:07→23:04)
[2017-08-09] MEDS: LEVOTHYROXINE SODIUM 112 MCG TAB PO SCH (05:15)
--- NOTE | 2017-08-09 06:27 | HHI.PR ---
Subjective Remarks Pederson catheter placed yesterday because of urinary retention. He states his pain is not present now. Objective Vitals Vital Signs Date Time Temp Pulse Resp B/P (MAP) Pulse Ox O2 Delivery O2 Flow Rate FiO2 08/09/17 00:00 96.4 72 20 172/83 (112) 94 08/08/17 20:00 96.4 71 18 148/75 (99) 95 08/08/17 16:00 98.1 70 20 165/85 (111) 93 08/08/17 12:00 97.4 56 18 107/59 (75) 96 08/08/17 08:00 97.4 67 18 145/84 (104) 92 Result Diagram: 08/08/17 0545 08/08/17 0545 Other Results Laboratory Tests Test 08/07/17 07:05 08/08/17 05:45 White Blood Count 16.5 TH/MM3 13.8 TH/MM3 Red Blood Count 3.95 MIL/MM3 3.46 MIL/MM3 Hemoglobin 10.7 GM/DL 10.0 GM/DL Hematocrit 33.9 % 29.9 % Mean Corpuscular Volume 85.7 FL 86.4 FL Mean Corpuscular Hemoglobin 27.1 PG 28.8 PG Mean Corpuscular Hemoglobin Concent 31.6 % 33.3 % Red Cell Distribution Width 14.0 % 14.9 % Platelet Count 207 TH/MM3 178 TH/MM3 Mean Platelet Volume 8.1 FL 8.6 FL Neutrophils (%) (Auto) 85.6 % Lymphocytes (%) (Auto) 6.3 % Monocytes (%) (Auto) 7.5 % Eosinophils (%) (Auto) 0.3 % Basophils (%) (Auto) 0.3 % Neutrophils # (Auto) 14.3 TH/MM3 Lymphocytes # (Auto) 1.0 TH/MM3 Monocytes # (Auto) 1.2 TH/MM3 Eosinophils # (Auto) 0.0 TH/MM3 Basophils # (Auto) 0.0 TH/MM3 CBC Comment DIFF FINAL Differential Comment Blood Urea Nitrogen 38 MG/DL 36 MG/DL Creatinine 2.70 MG/DL 3.20 MG/DL Random Glucose 176 MG/DL 143 MG/DL Calcium Level 7.7 MG/DL 6.9 MG/DL Sodium Level 136 MEQ/L 135 MEQ/L Potassium Level 4.0 MEQ/L 3.8 MEQ/L Chloride Level 100 MEQ/L 100 MEQ/L Carbon Dioxide Level 27.8 MEQ/L 27.8 MEQ/L Anion Gap 8 MEQ/L 7 MEQ/L Estimat Glomerular Filtration Rate 23 ML/MIN 19 ML/MIN Total Protein 5.9 GM/DL Protein Corrected Calcium 7.5 MG/DL Lab today still pending. Imaging Last Impressions Abdomen X-Ray 08/07/17 0000 Signed Impressions: Service Date/Time: Monday, August 07, 2017 09:44 - CONCLUSION: Given the overlying bowel gas and stool along with patient body habitus along with the small size of the stones, the left ureteral stones are not visualized. If there is a current need to evaluate the position we could perform low dose CT. Agustin Reed MD Abdomen/Pelvis CT 08/06/17 0000 Signed Impressions: Service Date/Time: Sunday, August 06, 2017 21:43 - CONCLUSION: 1. 4-5mm calculus in the proximal left ureter with mild hydronephrosis. 2. Mild diverticulosis. 3. 2 left renal calculi. Nate Celeste MD Objective Remarks Exam: WDWNWM in no distress HEENT: Pupils equal, no scleral icterus, mouth negative Heart: RRR Lungs: Clear Abdomen: soft, nontender Extremities: No edema Neuro: Alert, oriented. A/P Assessment and Plan Assessment: --Left ureteral calculus with mild hydronephrosis --Acute on chronic disease (history of stage 3 CKD) --Mild dehydration that was secondary to vomiting --Type 2 diabetes mellitus with nephropathy --Hypertension --Hyperlipidemia --Hypothyroidism --Coronary artery disease with prior [place]/prior CABG --CLL --GERD --Mild bilateral carotid artery atherosclerosis --Hypocalcemia Plan: Continue IV fluids and monitoring of his kidney function He is on sliding scale insulin coverage currently for his diabetes. He may require a urinary procedure to extract the stone--as per Dr Mccartney. Continue current medications. He is on TEDS/SCDS for DVT prophylaxis Add Oscal 500mg twice a day Pb Oh MD Aug 09, 2017 06:27
[2017-08-09 06:47] LABS: AUTOMATED NEUTROPHIL # 10.1 TH/MM3 (1.8-7.7); BASOPHIL # 0.1 TH/MM3 (0-0.2); BASOPHIL % 0.7 % (0.0-2.0); EOSINOPHIL # 0.2 TH/MM3 (0-0.4); EOSINOPHIL % 1.8 % (0.0-4.0); HEMATOCRIT 29.6 % (39.0-51.0); HEMO FLAGS DIFF FINAL; LYMPH % 6.1 % (9.0-44.0); LYMPHOCYTE # 0.7 TH/MM3 (1.0-4.8); MEAN CELL VOLUME 85.1 FL (80.0-100.0); MEAN CORPUSCULAR HEMOGLOBIN 27.9 PG (27.0-34.0); MEAN CORPUSCULAR HGB CONC 32.8 % (32.0-36.0); MONO % 8.3 % (0.0-8.0); NEUT % 83.1 % (16.0-70.0); PLATELET COUNT 167 TH/MM3 (150-450); RED BLOOD COUNT 3.49 MIL/MM3 (4.50-5.90); RED CELL DISTRIBUTION WIDTH 14.3 % (11.6-17.2); WHITE BLOOD COUNT 12.1 TH/MM3 (4.0-11.0)
[2017-08-09 06:50] LABS: POTASSIUM 3.6 MEQ/L (3.5-5.1)
[2017-08-09 07:03] LABS: BICARBONATE 25.3 MEQ/L (21.0-32.0)
[2017-08-09 07:32] LABS: CALCIUM-PROTEIN CORRECTED 7.2 MG/DL (8.5-10.1)
[2017-08-09 08:00] VITALS: BP 200/98; PULSE 58; RESP 18; TEMP 97.8; O2SAT 92
[2017-08-09] MEDS: INSULIN ASPART SUPPLEMENTAL SCALE SQ SCH ×4 (08:00→20:35)
[2017-08-09 08:35] VITALS: PULSE 74; RESP 18
[2017-08-09] MEDS: ASPIRIN 81 MG CHEW TAB CHEW SCH (08:37)
[2017-08-09] MEDS: CARVEDILOL 12.5 MG TAB PO SCH (08:38)
[2017-08-09] MEDS: PRAVASTATIN SOD 40 MG TAB PO SCH ×2 (08:39→20:37)
[2017-08-09] MEDS: TAMSULOSIN HCL 0.4 MG CAP PO SCH (08:39)
[2017-08-09] MEDS: CALCIUM CARBONATE 1.25 GM (CA 500 MG) TAB PO SCH ×2 (08:39→20:36)
[2017-08-09] MEDS: LISINOPRIL 20 MG TAB PO SCH ×2 (08:40→20:37)
[2017-08-09] MEDS: PANTOPRAZOLE SOD 20 MG DELAYED RELEASE TAB PO SCH (08:40)
[2017-08-09 11:00] VITALS: BP 153/82; PULSE 68; RESP 18
--- NOTE | 2017-08-09 12:11 | PD.CONS ---
HPI Service Nephrology Consult Requested By Reason for Consult Acute on chronic kidney disease Primary Care Physician Pb Oh MD History of Present Illness Mr. Lin is a 76 year old male admitted on the of this month with left sided abdominal and left flank pain. On arrival to the ER, his creatinine was 2.4. It has progressively increased to 3.4 today. In 2012, his creatinine was 1.[address] of the abdomen and pelvis without IV contrast which revealed left ureteral obstructing stone 4.5 mm in diameter. He has been seen by Urology. Patient later developed urinary retention, relieved after placement of Pederson catheter. He does not think he has passed the stone. Review of Systems Constitutional: COMPLAINS OF: Fatigue, DENIES: Fever, Weight gain, Weight loss Cardiovascular: DENIES: Chest pain, Palpitations, Syncope, Dyspnea on Exertion Gastrointestinal: COMPLAINS OF: Abdominal pain, Constipation, Nausea, DENIES: Black stools, Bloody stools, Diarrhea, Difficulty Swallowing Musculoskeletal: DENIES: Joint pain, Muscle aches Immunologic/allergic: DENIES: Eczema Neurologic: DENIES: Paresthesias Psychiatric: DENIES: Confusion Past Family Social History Allergies: Coded Allergies: No Known Allergies (Verified Allergy, Severe, 01/08/06) Past Medical History 1. Hypertension. 2. Hyper___ 3. Type 2 diabetes with diabetic nephropathy. 4. He has had coronary artery disease with prior MD and prior five vessel coronary artery bypass in 2005. 5. He has had mild bilateral carotid artery atherosclerosis. 6. He has gastroesophageal reflux disease. 7. Hypothyroidism. 8. Hyperlipidemia. 9. He has had history of colon polyps. 10. Diverticulosis. 11. Some thyroid nodules. 12. He has a history of CLL that he has been followed by Dr. Bhatti. 13. Stage III chronic kidney disease. He has had no stroke, no seizures. No peptic ulcer disease. No lung disease. Past Surgical History 1. Five-vessel coronary artery bypass. 2. Laparoscopic cholecystectomy. 3. Tonsillectomy and adenoidectomy. 4. Left cataract extraction, lens implant. 5. Colonoscopy 03/17/2007 with two polyps removed. 6. Colonoscopy 04/06/2011 that showed some diverticulosis. Reported Medications 1. Aspirin 81 mg a day. 2. Omeprazole 20 mg a day. 3. Carvedilol 25 mg daily. 4. Glimepiride 4 mg twice a day. 5. Hydrochlorothiazide 25 mg daily. 6. Levothyroxine 112 mcg one daily. 7. Lisinopril 20 mg a day. 8. Metformin 1000 mg twice a day. 9. He uses NovoLog insulin 22 units with breakfast, 24 units with his dinner. 10. He is on Toujeo Solostar 300 units per 3 mL, he takes 50 units at bedtime. 11. He is on vitamin D3 1000 units a day. 12. Simvastatin 20 mg a day. Active Ordered Medications Current Medications Medications (Trade) Dose Ordered Sig/Carmelo Route Start Time Stop Time Status Last Admin (NS Flush) 2 ml UNSCH PRN IV FLUSH 08/06/17 20:15 08/07/17 02:07 (Zofran Inj) 4 mg Q4HR PRN IV PUSH 08/06/17 22:30 08/09/17 06:38 Sodium Chloride 1,000 ml @ 100 mls/hr Q10H IV 08/06/17 22:30 08/09/17 11:09 (NovoLOG SUPPLEMENTAL SCALE) 1 ACHS SLIDING SCALE SQ 08/07/17 08:00 08/08/17 12:27 (D50w (Vial) Inj) 50 ml UNSCH PRN IV PUSH 08/06/17 22:45 (Glucagon Inj) 1 mg UNSCH PRN OTHER 08/06/17 22:45 (Aspirin Chew) 81 mg DAILY CHEW 08/07/17 09:00 08/09/17 08:37 (Coreg) 25 mg DAILY PO 08/07/17 09:00 08/09/17 08:38 (Protonix) 20 mg DAILY PO 08/07/17 07:15 08/09/17 08:40 (Pravachol) 40 mg BID PO 08/07/17 09:00 08/09/17 08:39 (Flomax) 0.4 mg DAILY PO 08/07/17 10:00 08/09/17 08:39 (Percocet 5-325 Mg) 2 tab Q4H PRN PO 08/07/17 13:30 08/09/17 01:07 (Percocet 5-325 Mg) 1 tab Q4H PRN PO 08/07/17 13:30 08/09/17 06:37 (Prinivil) 20 mg BID PO 08/07/17 22:55 08/09/17 08:40 (Synthroid) 112 mcg DAILY@0600 PO 08/08/17 06:00 08/09/17 05:15 (Oscal) 500 mg Q12HR PO 08/09/17 09:00 08/09/17 08:39 Family History His father in his 80s of Parkinson's disease and also had colon cancer. His mother had heart disease and of that at 84. Social History He is . He quit smoking at age 40, smoked three packs a day for 20 years prior to quitting. He rarely has a glass of wine. 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 Physical Exam Vital Signs Vital Signs Date Time Temp Pulse Resp B/P (MAP) Pulse Ox O2 Delivery O2 Flow Rate FiO2 08/09/17 11:00 68 18 153/82 (105) 08/09/17 08:35 74 18 08/09/17 08:00 97.8 58 18 200/98 (132) 92 08/09/17 07:40 17 08/09/17 00:00 96.4 72 20 172/83 (112) 94 08/08/17 20:00 96.4 71 18 148/75 (99) 95 08/08/17 16:00 98.1 70 20 165/85 (111) 93 Physical Exam GENERAL: elderly male, he is obese, alert and oriented. SKIN: Warm and dry. HEAD: Normocephalic. EYES: No scleral icterus. No injection or drainage. NECK: Supple, trachea midline. No JVD or lymphadenopathy. CARDIOVASCULAR: Regular rate and rhythm without murmurs, gallops, or rubs. RESPIRATORY: Breath sounds equal bilaterally. No accessory muscle use. GASTROINTESTINAL: Abdomen is distended, firm. Non tender. Positive bowel sounds. MUSCULOSKELETAL: No cyanosis, or edema. BACK: Nontender without obvious deformity. No CVA tenderness. Laboratory Laboratory Tests Test 08/09/17 06:10 White Blood Count 12.1 Red Blood Count 3.49 Hemoglobin 9.7 Hematocrit 29.6 Mean Corpuscular Volume 85.1 Mean Corpuscular Hemoglobin 27.9 Mean Corpuscular Hemoglobin Concent 32.8 Red Cell Distribution Width 14.3 Platelet Count 167 Mean Platelet Volume 8.4 Neutrophils (%) (Auto) 83.1 Lymphocytes (%) (Auto) 6.1 Monocytes (%) (Auto) 8.3 Eosinophils (%) (Auto) 1.8 Basophils (%) (Auto) 0.7 Neutrophils # (Auto) 10.1 Lymphocytes # (Auto) 0.7 Monocytes # (Auto) 1.0 Eosinophils # (Auto) 0.2 Basophils # (Auto) 0.1 CBC Comment DIFF FINAL Differential Comment Blood Urea Nitrogen 40 Creatinine 3.40 Random Glucose 113 Total Protein 5.7 Calcium Level 6.5 Sodium Level 138 Potassium Level 3.6 Chloride Level 103 Carbon Dioxide Level 25.3 Anion Gap 10 Estimat Glomerular Filtration Rate 18 Protein Corrected Calcium 7.2 Result Diagram: 08/09/1760908/09/17609 Assessment and Plan Problem List: (1) Acute kidney injury ICD Codes: N17.9 - Acute kidney failure, unspecified Plan: Patient appears to have underlying stage III CKD, perhaps due to diabetic nephropathy. SULY is due to left ureteral obstruction and obstructive uropathy. He also had developed urinary retention, now has a Pederson catheter, however renal function has not improved. Urology on the case. It does not appear that he has passed the kidney stone. Repeat labs tomorrow, and if renal function has not improved, he will benefit from cystoscopy and ureteral stent placement. Avoid nephrotoxic agents. Reduce IVF. Monitor urine output and renal function. (2) Nephrolithiasis ICD Codes: N20.0 - Calculus of kidney Status: Acute Plan: See above. Urology following. Send stone for analysis if possible. Ureteral stent placement may be necessary if renal function continues to decline. (3) Type 2 diabetes mellitus with complications ICD Codes: E11.8 - Type 2 diabetes mellitus with unspecified complications Plan: he does have proteinuria, likely has diabetic nephropathy. Insulin coverage to maintain blood glucose between 140 and 180 while hospitalized. (4) Essential (primary) hypertension ICD Codes: I10 - Essential (primary) hypertension Plan: BP is high, could be secondary to pain and discomfort. I have added Hydralazine. Monitor. Assessment and Plan Thanks for the consult. Patient reports that he has seen Dr. Coleman in the past, I will request Dr. Coleman to follow him from tomorrow. Nic Mckeon MD Aug 09, 2017 12:11
[2017-08-09] MEDS ORDERED: BISACODYL 10 MG SUPP RECTAL PRN (15:15)
[2017-08-09 15:31] VITALS: BP 168/92; PULSE 63; RESP 18
[2017-08-09] MEDS: hydrALAZINE HCL 25 MG TAB PO SCH ×2 (15:41→20:37)
--- NOTE | 2017-08-09 17:43 | HHI.PR ---
Subjective Patient symptoms today denies flank pain. c/o constipation. Denies fevers, chills, nausea. Objective Vital Signs Vital Signs Date Time Temp Pulse Resp B/P (MAP) Pulse Ox O2 Delivery O2 Flow Rate FiO2 08/09/17 15:31 63 18 168/92 (117) 08/09/17 14:41 18 08/09/17 11:00 68 18 153/82 (105) 08/09/17 08:35 74 18 08/09/17 08:00 97.8 58 18 200/98 (132) 92 08/09/17 00:00 96.4 72 20 172/83 (112) 94 08/08/17 20:00 96.4 71 18 148/75 (99) 95 Intake & Output 08/09/17 08/09/17 06:59 18:59 Intake Total 1022 ml Output Total 400 ml 500 ml Balance 622 ml -500 ml IV Total 1022 ml Output Urine Total 400 ml 500 ml Result Diagram: 08/09/1760908/09/17609 Objective Remarks NAD. abd obese but soft zee clear Medications and IVs Current Medications Medications (Trade) Dose Ordered Sig/Carmelo Route Start Time Stop Time Status Last Admin (NS Flush) 2 ml UNSCH PRN IV FLUSH 08/06/17 20:15 08/07/17 02:07 (Zofran Inj) 4 mg Q4HR PRN IV PUSH 08/06/17 22:30 08/09/17 06:38 Sodium Chloride 1,000 ml @ 70 mls/hr [id number] IV 08/06/17 22:30 08/09/17 11:09 (NovoLOG SUPPLEMENTAL SCALE) 1 ACHS SLIDING SCALE SQ 08/07/17 08:00 08/08/17 12:27 (D50w (Vial) Inj) 50 ml UNSCH PRN IV PUSH 08/06/17 22:45 (Glucagon Inj) 1 mg UNSCH PRN OTHER 08/06/17 22:45 (Aspirin Chew) 81 mg DAILY CHEW 08/07/17 09:00 08/09/17 08:37 (Coreg) 25 mg DAILY PO 08/07/17 09:00 08/09/17 08:38 (Protonix) 20 mg DAILY PO 08/07/17 07:15 08/09/17 08:40 (Pravachol) 40 mg BID PO 08/07/17 09:00 08/09/17 08:39 (Flomax) 0.4 mg DAILY PO 08/07/17 10:00 08/09/17 08:39 (Percocet 5-325 Mg) 2 tab Q4H PRN PO 08/07/17 13:30 08/09/17 01:07 (Percocet 5-325 Mg) 1 tab Q4H PRN PO 08/07/17 13:30 08/09/17 13:41 (Prinivil) 20 mg BID PO 08/07/17 22:55 08/09/17 08:40 (Synthroid) 112 mcg DAILY@0600 PO 08/08/17 06:00 08/09/17 05:15 (Oscal) 500 mg Q12HR PO 08/09/17 09:00 08/09/17 08:39 (Apresoline) 25 mg Q8HR PO 08/09/17 15:00 08/09/17 15:41 (Dulcolax Supp) 10 mg DAILY PRN RECTAL 08/09/17 15:15 08/09/17 15:52 Assessment and Plan Assessment and Plan 76 yo male with left ureteral calculi, urinary retention, ARF -Despite being pain free, his Creatinine continues to rise. -Due to persistent renal failure, he has been added to OR schedule tomorrow () for cystoscopy, left retrograde pyelogram, left ureteral stent insertion. Ramiro Mccartney MD Aug 09, 2017 17:43
[2017-08-09 20:00] VITALS: BP 177/86; PULSE 72; RESP 22; TEMP 97; O2SAT 92
[2017-08-10] VITALS (8 sets, daily range): BP systolic 150–163; BP diastolic 70–86; PULSE 64–73; RESP 18–21; TEMP 96.1–98.4; O2SAT 91–96
[2017-08-10] MEDS: hydrALAZINE HCL 25 MG TAB PO SCH ×3 (05:22→21:05)
[2017-08-10] MEDS: LEVOTHYROXINE SODIUM 112 MCG TAB PO SCH (05:22)
--- NOTE | 2017-08-10 06:29 | HHI.PR ---
Subjective Remarks Still has flank pain. He states he has had a little wheezing during the night. He is going for urological procedure today to try to remove the stone. Objective Vitals Vital Signs Date Time Temp Pulse Resp B/P (MAP) Pulse Ox O2 Delivery O2 Flow Rate FiO2 08/10/17 00:00 98.1 71 21 163/86 (111) 91 08/09/17 20:00 97.0 72 22 177/86 (116) 92 08/09/17 15:31 63 18 168/92 (117) 08/09/17 14:41 18 08/09/17 11:00 68 18 153/82 (105) 08/09/17 08:35 74 18 08/09/17 08:00 97.8 58 18 200/98 (132) 92 Result Diagram: 08/09/17 0610 08/09/17 0610 Other Results Laboratory Tests Test 08/09/17 06:10 White Blood Count 12.1 TH/MM3 Red Blood Count 3.49 MIL/MM3 Hemoglobin 9.7 GM/DL Hematocrit 29.6 % Mean Corpuscular Volume 85.1 FL Mean Corpuscular Hemoglobin 27.9 PG Mean Corpuscular Hemoglobin Concent 32.8 % Red Cell Distribution Width 14.3 % Platelet Count 167 TH/MM3 Mean Platelet Volume 8.4 FL Neutrophils (%) (Auto) 83.1 % Lymphocytes (%) (Auto) 6.1 % Monocytes (%) (Auto) 8.3 % Eosinophils (%) (Auto) 1.8 % Basophils (%) (Auto) 0.7 % Neutrophils # (Auto) 10.1 TH/MM3 Lymphocytes # (Auto) 0.7 TH/MM3 Monocytes # (Auto) 1.0 TH/MM3 Eosinophils # (Auto) 0.2 TH/MM3 Basophils # (Auto) 0.1 TH/MM3 CBC Comment DIFF FINAL Differential Comment Blood Urea Nitrogen 40 MG/DL Creatinine 3.40 MG/DL Random Glucose 113 MG/DL Total Protein 5.7 GM/DL Calcium Level 6.5 MG/DL Sodium Level 138 MEQ/L Potassium Level 3.6 MEQ/L Chloride Level 103 MEQ/L Carbon Dioxide Level 25.3 MEQ/L Anion Gap 10 MEQ/L Estimat Glomerular Filtration Rate 18 ML/MIN Protein Corrected Calcium 7.2 MG/DL Lab today pending Imaging Last Impressions Abdomen X-Ray 08/07/17 0000 Signed Impressions: Service Date/Time: Monday, August 07, 2017 09:44 - CONCLUSION: Given the overlying bowel gas and stool along with patient body habitus along with the small size of the stones, the left ureteral stones are not visualized. If there is a current need to evaluate the position we could perform low dose CT. Agustin Reed MD Abdomen/Pelvis CT 08/06/17 0000 Signed Impressions: Service Date/Time: Sunday, August 06, 2017 21:43 - CONCLUSION: 1. 4-5mm calculus in the proximal left ureter with mild hydronephrosis. 2. Mild diverticulosis. 3. 2 left renal calculi. Nate Celeste MD Objective Remarks Exam: WDWNWM in no distress HEENT: Pupils equal, no scleral icterus, mouth negative Heart: RRR Lungs: Some faint inspiratory and expiratory wheezes Abdomen: soft, nontender Extremities: No edema Neuro: Alert, oriented. A/P Assessment and Plan Assessment: --Left ureteral calculus with mild hydronephrosis --Acute on chronic disease (history of stage 3 CKD)--renal was consulted on 08-09 because of decline in renal function --Mild dehydration that was secondary to vomiting --Type 2 diabetes mellitus with nephropathy --Hypertension --Hyperlipidemia --Hypothyroidism --Coronary artery disease with prior [place]/prior CABG --CLL --GERD --Mild bilateral carotid artery atherosclerosis --Hypocalcemia --Wheezing Plan: Continue IV fluids and monitoring of his kidney function He is on sliding scale insulin coverage currently for his diabetes. He is going for a urinary procedure to extract the stone today by Dr Mccartney Continue current medications. He is on TEDS/SCDS for DVT prophylaxis I will give him some Duoneb treatments for his wheezing and do a chest x-ray Pb Oh MD Aug 10, 2017 06:29
[2017-08-10 07:22] LABS: AUTOMATED NEUTROPHIL # 12.1 TH/MM3 (1.8-7.7); BASOPHIL % 0.1 % (0.0-2.0); EOSINOPHIL # 0.1 TH/MM3 (0-0.4); HEMATOCRIT 30.7 % (39.0-51.0); LYMPH % 3.9 % (9.0-44.0); LYMPHOCYTE # 0.5 TH/MM3 (1.0-4.8); MEAN CELL VOLUME 86.2 FL (80.0-100.0); MEAN CORPUSCULAR HEMOGLOBIN 27.6 PG (27.0-34.0); MONO % 8.5 % (0.0-8.0); NEUT % 86.5 % (16.0-70.0); PLATELET COUNT 183 TH/MM3 (150-450); RED BLOOD COUNT 3.57 MIL/MM3 (4.50-5.90); RED CELL DISTRIBUTION WIDTH 14.1 % (11.6-17.2); WHITE BLOOD COUNT 13.9 TH/MM3 (4.0-11.0)
[2017-08-10 07:26] LABS: HEMO FLAGS DIFF FINAL
[2017-08-10 07:33] LABS: POTASSIUM 3.5 MEQ/L (3.5-5.1)
[2017-08-10 07:40] LABS: BICARBONATE 22.7 MEQ/L (21.0-32.0)
[2017-08-10 08:02] LABS: CALCIUM-PROTEIN CORRECTED 7.4 MG/DL (8.5-10.1)
[2017-08-10] MEDS: ONDANSETRON HCL 4 MG/2 ML VIAL IV PUSH PRN (08:15)
[2017-08-10] MEDS: INSULIN ASPART SUPPLEMENTAL SCALE SQ SCH ×4 (08:18→21:00)
--- NOTE | 2017-08-10 08:42 | RADRPT ---
EXAM DATE/TIME: 08/10/2017 08:14 [facility] COMPARISON: CHEST SINGLE AP, January 23, 2013, 15:30. INDICATIONS : Short of breath. MEDICAL HISTORY : Hypertension. Diabetes mellitus type II. Leukemia. SURGICAL HISTORY : CABG. Cholecystectomy. ENCOUNTER: Subsequent ACUITY: 3 days PAIN SCORE: 0/10 LOCATION: Bilateral chest FINDINGS: Stable right IJ [id number]. Diffuse interstitial prominence. Mild airspace disease in the left low er lung zone with associated mild volume loss. Continued blunting of the left costophrenic sulcus whi ch may reflect trace fluid or pleural thickening. Cardiomediastinal contours are stable. Remainder of exam is unchanged. CONCLUSION: 1. Mild positive fluid balance. 2. Mild left lower lobe airspace disease, likely atelectasis. 3. Stable trace left pleural effusion versus pleural thickening. Andres Hall MD on August 10, 2017 at 8:38 Board Certified Radiologist. This report was verified electronically.
[2017-08-10] MEDS: CALCIUM CARBONATE 1.25 GM (CA 500 MG) TAB PO SCH ×3 (09:20→17:11)
[2017-08-10] MEDS: PANTOPRAZOLE SOD 20 MG DELAYED RELEASE TAB PO SCH (09:20)
[2017-08-10] MEDS: TAMSULOSIN HCL 0.4 MG CAP PO SCH (09:20)
[2017-08-10] MEDS: PRAVASTATIN SOD 40 MG TAB PO SCH ×2 (09:20→21:05)
[2017-08-10] MEDS: LISINOPRIL 20 MG TAB PO SCH ×2 (09:20→21:16)
[2017-08-10] MEDS: CARVEDILOL 12.5 MG TAB PO SCH (09:20)
[2017-08-10] MEDS: ASPIRIN 81 MG CHEW TAB CHEW SCH (09:20)
[2017-08-10] MEDS ORDERED: PROPOFOL 200 MG/20 ML AMP IV ONE (12:00)
[2017-08-10] MEDS ORDERED: CIPROFLOXACIN 400 MG PREMIX 200 ML ONE (12:40)
[2017-08-10] MEDS: CIPROFLOXACIN/DEXT 200 MG/100 ML IV ONE ×2 (12:50→14:08)
--- NOTE | 2017-08-10 13:15 | PD.OP ---
Operative Report Date of Surgery: Aug 10, 2017 Preoperative Diagnosis: Left ureteral calculus with mild hydronephrosis ARF paraphimosis Postoperative Diagnosis: Procedure: cystoscopy, left retrograde pyelogram, left ureteral stent insertion, reduction of paraphimosis Surgeon: Ramiro Mccartney Instrument Operator(s): n/a Operation and Findings: significant hydronephrosis on retrograde pyelogram, left ureteral stent placed without difficulty Also had paraphimosis, which was reduced. Ramiro Mccartney MD Aug 10, 2017 13:15
[2017-08-10] MEDS ORDERED: IOHEXOL 350 MG/ML 50 ML BTL (for RAD DIAG) OTHER ONE (13:49)
[2017-08-10] MEDS: SODIUM CHLOR 0.9% 1000 ML INJ 1,000 ML IV SCH (14:47)
[2017-08-10] MEDS ORDERED: FUROSEMIDE 40 MG/4 ML VIAL IV PUSH ONE (16:00)
[2017-08-10] MEDS: RESP: ALBUTEROL 2.5 MG/IPRATROPIUM 0.5 MG NEB (PRN) NEB (16:53)
--- NOTE | 2017-08-10 17:52 | HHI.NPPN ---
Subjective History of Present Illness 76 year old male with ARF/ckd s/p stent Left for kidney stones Review of Systems General Constitutional: Fatigue Objective Data Data 08/10/17 08/11/17 19:00 07:00 Intake Total 1076 ml Output Total 950 ml Balance 126 ml Intake Oral 0 ml IV Total 576 ml Other 500 ml Output Urine Total 950 ml Bladder Scan Volume Amount 999 ml 999 ml # Bowel Movements 4 Vital Signs Date Time Temp Pulse Resp B/P (MAP) Pulse Ox O2 Delivery O2 Flow Rate FiO2 08/10/17 16:57 95 Nasal Cannula 2.00 08/10/17 16:00 96.1 64 20 151/70 (97) 95 08/10/17 15:13 94 Nasal Cannula 2.00 08/10/17 14:00 97.8 67 14 140/67 (91) 98 Nasal Cannula 2 08/10/17 13:45 67 14 123/63 (83) 92 Nasal Cannula 2 08/10/17 13:40 67 14 128/62 (84) 96 Nasal Cannula 2 08/10/17 13:30 98.5 65 14 83/47 (59) 93 Nasal Cannula 2 08/10/17 13:30 65 08/10/17 12:10 100 Nasal Cannula 2 08/10/17 12:06 98.0 73 20 153/83 (106) 100 08/10/17 08:00 98.0 73 20 153/83 (106) 93 08/10/17 00:00 98.1 71 21 163/86 (111) 91 08/09/17 20:00 97.0 72 22 177/86 (116) 92 -: 08/10/17 0640 08/10/17 0640 Physical Exam General Appearance: Well Developed, Well Nourished Neck Neck Exam: Neck Supple Pulmonary Resp Exam: Clear Bilaterally, Breath Sounds Equal Cardiology CV Exam: Regular, Normal Sinus Rhythm Gastrointestinal/Abdomen GI Exam: Soft, Distended Integumentary Skin Exam: Clear Extremeties Extremities Exam: No Edema, Pedal Pulses Palpable Assessment/Plan Problem List: (1) Acute kidney injury ICD Codes: N17.9 - Acute kidney failure, unspecified Plan: Patient appears to have underlying stage III CKD, due to diabetic nephropathy. SULY is due to left ureteral obstruction and obstructive uropathy. Cr 3.5 underwent cystoscopy and L stent placement good UOP follow BMP if Cr declines can be followed as out pt drink water (2) Nephrolithiasis ICD Codes: N20.0 - Calculus of kidney Status: Acute Plan: See above. Urology following. Ureteral stent was placed Left (3) Type 2 diabetes mellitus with complications ICD Codes: E11.8 - Type 2 diabetes mellitus with unspecified complications Plan: he does have proteinuria, likely has diabetic nephropathy. Insulin coverage to maintain blood glucose between 140 and 180 while hospitalized. (4) Essential (primary) hypertension ICD Codes: I10 - Essential (primary) hypertension Plan: BP is high, could be secondary to pain and discomfort. I have added Hydralazine. Monitor. Vinod Coleman MD Aug 10, 2017 17:52
[2017-08-11] VITALS (7 sets, daily range): BP systolic 121–167; BP diastolic 68–82; PULSE 66–70; RESP 18–20; TEMP 96.1–98.3; O2SAT 94–98
--- NOTE | 2017-08-11 06:34 | RADRPT ---
EXAM DATE/TIME: 08/11/2017 02:53 [facility] COMPARISON: CT ABDOMEN & PELVIS W/O CONTRAST, August 06, 2017, 21:43. CHEST SINGLE AP, August 10, 2017, 8: 14. INDICATIONS : Shortness of breath MEDICAL HISTORY : Hypertension. Diabetes mellitus type II. Leukemia SURGICAL HISTORY : CABG. Cholecystectomy ENCOUNTER: Subsequent ACUITY: 4 - 6 days PAIN SCORE: 0/10 LOCATION: Bilateral chest FINDINGS: [id number]-[id number] tip in superior vena cava. Minimal basilar atelectasis or scarring. No new consolidatio n. Heart size within normal limits. Previous median sternotomy. CONCLUSION: 1. Minimal basilar atelectasis and scarring at the left costophrenic angle. Wrlkul-d-Uiad in superior vena cava. Mode Graham MD on August 11, 2017 at 6:31 Board Certified Radiologist. This report was verified electronically.
[2017-08-11] MEDS: LEVOTHYROXINE SODIUM 112 MCG TAB PO SCH (06:36)
[2017-08-11] MEDS: hydrALAZINE HCL 25 MG TAB PO SCH ×3 (06:36→21:44)
[2017-08-11 06:59] LABS: AUTOMATED NEUTROPHIL # 10.6 TH/MM3 (1.8-7.7); BASOPHIL # 0.1 TH/MM3 (0-0.2); BASOPHIL % 0.4 % (0.0-2.0); EOSINOPHIL # 0.4 TH/MM3 (0-0.4); HEMATOCRIT 31.2 % (39.0-51.0); HEMO FLAGS DIFF FINAL; LYMPH % 3.9 % (9.0-44.0); LYMPHOCYTE # 0.5 TH/MM3 (1.0-4.8); MEAN CELL VOLUME 85.3 FL (80.0-100.0); MEAN CORPUSCULAR HEMOGLOBIN 27.9 PG (27.0-34.0); MEAN CORPUSCULAR HGB CONC 32.7 % (32.0-36.0); MONO % 8.7 % (0.0-8.0); PLATELET COUNT 198 TH/MM3 (150-450); RED BLOOD COUNT 3.66 MIL/MM3 (4.50-5.90); RED CELL DISTRIBUTION WIDTH 14.2 % (11.6-17.2); WHITE BLOOD COUNT 12.7 TH/MM3 (4.0-11.0)
[2017-08-11 07:10] LABS: POTASSIUM 3.2 MEQ/L (3.5-5.1)
[2017-08-11 07:29] LABS: BICARBONATE 23.7 MEQ/L (21.0-32.0); MAGNESIUM 1.2 MG/DL (1.5-2.5)
[2017-08-11] MEDS: RESP: ALBUTEROL 2.5 MG/IPRATROPIUM 0.5 MG NEB (PRN) NEB (07:59)
--- NOTE | 2017-08-11 08:03 | EKG ---
Date Performed: 08/10/2017 Time Performed: 12:18:57 PTAGE: 76 years EKG: Sinus rhythm NORMAL ECG Since PREVIOUS TRACING , no significant change noted PREVIOUS TRACIN01/23/2013 15.52 DOCTOR: Neha Ojeda Interpretating Date/Time 08/11/2017 08:02:13
[2017-08-11] MEDS: INSULIN ASPART SUPPLEMENTAL SCALE SQ SCH ×4 (08:23→21:00)
[2017-08-11 09:06] LABS: CALCIUM-PROTEIN CORRECTED 7.7 MG/DL (8.5-10.1)
[2017-08-11] MEDS: PANTOPRAZOLE SOD 20 MG DELAYED RELEASE TAB PO SCH (09:29)
[2017-08-11] MEDS: PRAVASTATIN SOD 40 MG TAB PO SCH ×2 (09:29→21:44)
[2017-08-11] MEDS: LISINOPRIL 20 MG TAB PO SCH ×2 (09:29→21:44)
[2017-08-11] MEDS: ASPIRIN 81 MG CHEW TAB CHEW SCH (09:29)
[2017-08-11] MEDS: CALCIUM CARBONATE 1.25 GM (CA 500 MG) TAB PO SCH ×3 (09:29→16:56)
[2017-08-11] MEDS: TAMSULOSIN HCL 0.4 MG CAP PO SCH (09:29)
[2017-08-11] MEDS: CARVEDILOL 12.5 MG TAB PO SCH (09:29)
--- NOTE | 2017-08-11 09:56 | MP ---
cc: TAMARA COBOS MD, DONALD G. M.D. DATE OF SURGERY 08/10/2017 PREOPERATIVE DIAGNOSIS 1. Left ureteral calculus with mild hydronephrosis. 2. Acute on chronic renal failure. 3. Paraphimosis. 4. Acute Urinary retention. 5. constipation POSTOPERATIVE DIAGNOSIS 1. Left ureteral calculus with mild hydronephrosis. 2. Acute on chronic renal failure. 3. Paraphimosis. 4. Acute Urinary Retention 5. Constipation PROCEDURE PERFORMED 1. Cystourethroscopy. 2. Left retrograde pyelogram. 3. Insertion of left ureteral stent. 4. Reduction of paraphimosis. SURGEON MD Sherrill ANESTHESIA General. COMPLICATIONS None. PREOPERATIVE ANTIBIOTICS Cipro 200 milligrams IV. DRAINS 1. 6 x 26 double-J left ureteral stent. 2. 16 Guinean Pederson catheter to gravity drainage. SPECIMENS None. BLOOD LOSS Zero. DISPOSITION To recovery. INDICATIONS The patient is a 76-year-old male who presented to the ER this on Tuesday with complaints of a left flank pain and during workup he was found to have elevated creatinine of 2.2. He underwent a CT of abdomen and pelvis without contrast done which showed a 5 mm mid-left ureteral stone with mild hydronephrosis. He was subsequently admitted for pain control and urology was consulted. Over the course of the next couple of days his creatinine slowly increased all the way up to 3.4. He also went into urinary retention, a catheter was placed for over 700 ml and was started on Flomax. Due to his steadily rise in his creatinine he was then set up for cystoscopy and stent placement today. After risks, benefits, alternatives were explained to the patient, the patient elected to proceed, informed consent was obtained. DETAILS OF THE PROCEDURE The patient appropriately identified, brought back to the cystoscopy suite where he was laid supine on the cystoscopy table. Appropriate time-out was performed under direction of anesthesiology. The patient was intubated and induced under general aesthetic. Preop antibiotics in the form of Cipro 200 milligrams IV were given one hour before start of the procedure. The patient then placed in the dorsolithotomy position, prepped and draped in normal sterile surgical fashion. On initial exam he was found to have some penile swelling consistent with paraphimosis. This was successfully reduced. At this point I then passed a rigid cystoscope into his bladder. I was able to look at his prostate which he had bilobar hyperplasia and approximately 4 cm long. I proceeded into his bladder. He had 2+ trabeculated bladder. There was no evidence of any bladder tumor, stones or diverticula. Both orifices were identified and normal appearance, normal anatomical location. His left ureteral orifice of particular note was quite narrow. A 5-Guinean open ended ureteral catheter was inserted inside the left UO and a left retrograde pyelogram was performed which showed a filling defect in the distal ureter with significant hydro behind that stone. The calyces were slightly blunted. No other filling defects were seen. At this time through the 5-Guinean open-ended ureteral catheter I passed a guidewire up into the left kidney. This was confirmed by fluoroscopy. The catheter was then removed. A 6 x 26 double-J stent was passed over the wire up into left kidney, good position was confirmed by fluoroscopy. At this time the scope was removed. A 16 Guinean Pederson catheter was then replaced. This concluded the procedure. The patient was extubated and sent to recovery in stable condition. He will be transferred back to floor for routine postop care. Recommend continuing his Flomax. Will repeat BMP in the morning. He will likely need to go home with his Pederson catheter and void trial as an outpatient. The stone will be treated as an outpatient as well. Tamara Cobos MD EMMu/OUSMANE /1:16 PM /9:41 AM [facility]
--- NOTE | 2017-08-11 10:03 | HHI.PR ---
Subjective Remarks He states he has less pain today. Had placement of a ureteral stent yesterday. Was noted to have a significant hydronephrosis on the left by the urologist. He states his breathing is better today. His chest x-ray yesterday showed positive fluid balance. He was given Lasix IV yesterday and his IV rate was decreased. He is also being seen by nephrology for his acute on chronic kidney disease. Objective Vitals Vital Signs Date Time Temp Pulse Resp B/P (MAP) Pulse Ox O2 Delivery O2 Flow Rate FiO2 08/11/17 08:01 94 Nasal Cannula 2.00 08/11/17 08:00 97.1 70 18 148/69 (95) 97 08/11/17 00:00 98.3 70 18 167/82 (110) 96 08/10/17 20:12 96 Nasal Cannula 2.00 08/10/17 20:00 98.4 70 18 150/81 (104) 96 08/10/17 16:57 95 Nasal Cannula 2.00 08/10/17 16:00 96.1 64 20 151/70 (97) 95 08/10/17 15:13 94 Nasal Cannula 2.00 08/10/17 14:00 97.8 67 14 140/67 (91) 98 Nasal Cannula 2 08/10/17 13:45 67 14 123/63 (83) 92 Nasal Cannula 2 08/10/17 13:40 67 14 128/62 (84) 96 Nasal Cannula 2 08/10/17 13:30 98.5 65 14 83/47 (59) 93 Nasal Cannula 2 08/10/17 13:30 65 08/10/17 12:10 100 Nasal Cannula 2 08/10/17 12:06 98.0 73 20 153/83 (106) 100 Result Diagram: 08/11/17 0650 08/11/17 0650 Other Results Laboratory Tests Test 08/10/17 06:40 08/11/17 06:50 White Blood Count 13.9 TH/MM3 12.7 TH/MM3 Red Blood Count 3.57 MIL/MM3 3.66 MIL/MM3 Hemoglobin 9.9 GM/DL 10.2 GM/DL Hematocrit 30.7 % 31.2 % Mean Corpuscular Volume 86.2 FL 85.3 FL Mean Corpuscular Hemoglobin 27.6 PG 27.9 PG Mean Corpuscular Hemoglobin Concent 32.0 % 32.7 % Red Cell Distribution Width 14.1 % 14.2 % Platelet Count 183 TH/MM3 198 TH/MM3 Mean Platelet Volume 8.3 FL 8.0 FL Neutrophils (%) (Auto) 86.5 % 84.0 % Lymphocytes (%) (Auto) 3.9 % 3.9 % Monocytes (%) (Auto) 8.5 % 8.7 % Eosinophils (%) (Auto) 1.0 % 3.0 % Basophils (%) (Auto) 0.1 % 0.4 % Neutrophils # (Auto) 12.1 TH/MM3 10.6 TH/MM3 Lymphocytes # (Auto) 0.5 TH/MM3 0.5 TH/MM3 Monocytes # (Auto) 1.2 TH/MM3 1.1 TH/MM3 Eosinophils # (Auto) 0.1 TH/MM3 0.4 TH/MM3 Basophils # (Auto) 0.0 TH/MM3 0.1 TH/MM3 CBC Comment DIFF FINAL DIFF FINAL Differential Comment Blood Urea Nitrogen 42 MG/DL 46 MG/DL Creatinine 3.50 MG/DL 3.20 MG/DL Random Glucose 137 MG/DL 137 MG/DL Total Protein 5.6 GM/DL 5.8 GM/DL Calcium Level 6.7 MG/DL 7.0 MG/DL Sodium Level 138 MEQ/L 139 MEQ/L Potassium Level 3.5 MEQ/L 3.2 MEQ/L Chloride Level 104 MEQ/L 103 MEQ/L Carbon Dioxide Level 22.7 MEQ/L 23.7 MEQ/L Anion Gap 11 MEQ/L 12 MEQ/L Estimat Glomerular Filtration Rate 17 ML/MIN 19 ML/MIN Protein Corrected Calcium 7.4 MG/DL 7.7 MG/DL Magnesium Level 1.2 MG/DL Imaging Last Impressions Abdomen X-Ray 08/07/17 0000 Signed Impressions: Service Date/Time: Monday, August 07, 2017 09:44 - CONCLUSION: Given the overlying bowel gas and stool along with patient body habitus along with the small size of the stones, the left ureteral stones are not visualized. If there is a current need to evaluate the position we could perform low dose CT. Agustin Reed MD Abdomen/Pelvis CT 08/06/17 0000 Signed Impressions: Service Date/Time: Sunday, August 06, 2017 21:43 - CONCLUSION: 1. 4-5mm calculus in the proximal left ureter with mild hydronephrosis. 2. Mild diverticulosis. 3. 2 left renal calculi. Nate Celeste MD Objective Remarks Exam: [id number] in no distress HEENT: Pupils equal, no scleral icterus, mouth negative Heart: RRR Lungs: No wheezes heard today Abdomen: soft, nontender Extremities: No edema Neuro: Alert, oriented. A/P Assessment and Plan Assessment: --Left ureteral calculus with hydronephrosis--left ureteral stent placed on 08-10 --Acute on chronic disease (history of stage 3 CKD)--renal was consulted on 08-09 because of decline in renal function --Mild dehydration that was secondary to vomiting --Type 2 diabetes mellitus with nephropathy --Hypertension --Hyperlipidemia --Hypothyroidism --Coronary artery disease with prior IA/prior CABG --CLL --GERD --Mild bilateral carotid artery atherosclerosis --Hypocalcemia --Wheezing on 08-10-17--likely due to slight volume overload Plan: Continue monitoring of his kidney function He is on sliding scale insulin coverage currently for his diabetes. Continue current medications. He is on TEDS/SCDS for DVT prophylaxis Duoneb treatments as needed. Pb Oh MD Aug 11, 2017 10:03
[2017-08-11] MEDS ORDERED: POTASSIUM CHLORIDE 20 MEQ CONTROLLED RELEASE TAB PO SCH (13:15)
[2017-08-11] MEDS ORDERED: MAGNESIUM SULFATE 1 GM PREMIX 100 ML IV ONE (14:15)
[2017-08-11] MEDS: SODIUM CHLOR 0.9% 1000 ML INJ 1,000 ML IV SCH (14:32)
--- NOTE | 2017-08-11 16:46 | HHI.PR ---
Subjective Patient symptoms today denies any new issues. Denies flank pain. Denies fevers. In general feels pretty good. Objective Vital Signs Vital Signs Date Time Temp Pulse Resp B/P (MAP) Pulse Ox O2 Delivery O2 Flow Rate FiO2 08/11/17 12:00 96.1 66 18 121/73 (89) 96 08/11/17 08:01 94 Nasal Cannula 2.00 08/11/17 08:00 97.1 70 18 148/69 (95) 97 08/11/17 00:00 98.3 70 18 167/82 (110) 96 08/10/17 20:12 96 Nasal Cannula 2.00 08/10/17 20:00 98.4 70 18 150/81 (104) 96 08/10/17 16:57 95 Nasal Cannula 2.00 Intake & Output 08/11/17 08/11/17 07:00 19:00 Intake Total 720 ml Output Total 3200 ml 440 ml Balance -2480 ml -440 ml Intake Oral 480 ml IV Total 240 ml Output Urine Total 3200 ml 440 ml Result Diagram: 08/11/17 0650 08/11/17 0650 Imaging Last 24 hours Impressions Chest X-Ray 08/11/17 0600 Signed Impressions: Service Date/Time: July 02:53 - CONCLUSION: 1. Minimal basilar atelectasis and scarring at the left costophrenic angle. Cewgnd-l-Zhny in superior vena cava. Mode Graham MD Objective Remarks NAD. abd obese but soft zee guicho Procedures cystoscopy, left retrograde pyelogram, left ureteral stent insertion, reduction paraphimosis. Medications and IVs Current Medications Medications (Trade) Dose Ordered Sig/Carmelo Route Start Time Stop Time Status Last Admin (NS Flush) 2 ml UNSCH PRN IV FLUSH 08/06/17 20:15 08/07/17 02:07 (Zofran Inj) 4 mg Q4HR PRN IV PUSH 08/06/17 22:30 08/10/17 08:15 Sodium Chloride 1,000 ml @ 30 mls/hr Q24H IV 08/06/17 22:30 08/11/17 14:32 (NovoLOG SUPPLEMENTAL SCALE) 1 ACHS SLIDING SCALE SQ 08/07/17 08:00 08/11/17 12:37 (D50w (Vial) Inj) 50 ml UNSCH PRN IV PUSH 08/06/17 22:45 (Glucagon Inj) 1 mg UNSCH PRN OTHER 08/06/17 22:45 (Aspirin Chew) 81 mg DAILY CHEW 08/07/17 09:00 08/11/17 09:29 (Coreg) 25 mg DAILY PO 08/07/17 09:00 08/11/17 09:29 (Protonix) 20 mg DAILY PO 08/07/17 07:15 08/11/17 09:29 (Pravachol) 40 mg BID PO 08/07/17 09:00 08/11/17 09:29 (Flomax) 0.4 mg DAILY PO 08/07/17 10:00 08/11/17 09:29 (Percocet 5-325 Mg) 2 tab Q4H PRN PO 08/07/17 13:30 08/09/17 01:07 (Percocet 5-325 Mg) 1 tab Q4H PRN PO 08/07/17 13:30 08/09/17 13:41 (Prinivil) 20 mg BID PO 08/07/17 22:55 08/11/17 09:29 (Synthroid) 112 mcg DAILY@0600 PO 08/08/17 06:00 08/11/17 06:36 (Apresoline) 25 mg Q8HR PO 08/09/17 15:00 08/11/17 14:29 (Dulcolax Supp) 10 mg DAILY PRN RECTAL 08/09/17 15:15 08/09/17 15:52 (Duoneb Neb) 1 ampule Q6HR NEB PRN NEB 08/10/17 06:30 08/11/17 07:59 (Oscal) 500 mg TID PO 08/10/17 09:00 08/11/17 12:34 (KCl) 20 meq UNSCH PO 08/11/17 13:15 08/11/17 14:29 Assessment and Plan Assessment and Plan 76 yo male with left ureteral calculi s/p cystoscopy, left retrograde pyelogram , left ureteral stent insertion, reduction of paraphimosis, POD# 1. -Creatinine slightly improved. Good UOP. -Recommend home with zee. Void trial next week in office. -Will treat ureteral stone as outpatient. Ramiro Mccartney MD Aug 11, 2017 16:46
--- NOTE | 2017-08-11 19:35 | HHI.NPPN ---
Subjective History of Present Illness 76 year old male with ARF/ckd s/p stent Left for kidney stones Review of Systems General Constitutional: Fatigue Objective Data Data 08/11/17 08/12/17 19:00 07:00 Intake Total 668 ml Output Total 440 ml Balance 228 ml Intake Oral 480 ml IV Total 188 ml Output Urine Total 440 ml Vital Signs Date Time Temp Pulse Resp B/P (MAP) Pulse Ox O2 Delivery O2 Flow Rate FiO2 08/11/17 16:00 96.8 67 18 133/68 (89) 95 08/11/17 12:00 96.1 66 18 121/73 (89) 96 08/11/17 08:01 94 Nasal Cannula 2.00 08/11/17 08:00 97.1 70 18 148/69 (95) 97 08/11/17 00:00 98.3 70 18 167/82 (110) 96 08/10/17 20:12 96 Nasal Cannula 2.00 08/10/17 20:00 98.4 70 18 150/81 (104) 96 -: 08/11/17 0650 08/11/17 0650 Physical Exam General Appearance: Well Developed, Well Nourished Neck Neck Exam: Neck Supple Pulmonary Resp Exam: Clear Bilaterally, Breath Sounds Equal Cardiology CV Exam: Regular, Normal Sinus Rhythm Gastrointestinal/Abdomen GI Exam: Soft, Distended Integumentary Skin Exam: Clear Extremeties Extremities Exam: No Edema, Pedal Pulses Palpable Assessment/Plan Problem List: (1) Acute kidney injury ICD Codes: N17.9 - Acute kidney failure, unspecified Plan: Patient appears to have underlying stage III CKD, due to diabetic nephropathy. SULY is due to left ureteral obstruction and obstructive uropathy. Cr 3.2 K low replaced post cystoscopy and L stent placement good UOP follow BMP if Cr declines can be followed as out pt Cr declined further OK to follow as out patient will see as needed (2) Nephrolithiasis ICD Codes: N20.0 - Calculus of kidney Status: Acute Plan: See above. Urology following. Ureteral stent was placed Left (3) Type 2 diabetes mellitus with complications ICD Codes: E11.8 - Type 2 diabetes mellitus with unspecified complications Plan: he does have proteinuria, likely has diabetic nephropathy. Insulin coverage to maintain blood glucose between 140 and 180 while hospitalized. (4) Essential (primary) hypertension ICD Codes: I10 - Essential (primary) hypertension Plan: BP is high, could be secondary to pain and discomfort. I have added Hydralazine. Monitor. Vinod Coleman MD Aug 11, 2017 19:35
[2017-08-11] MEDS: SODIUM CHLORIDE 0.9% FLUSH 10 ML FLUSH IV FLUSH PRN (21:44)
[2017-08-12] VITALS: BP 162/77; PULSE 71; RESP 20; TEMP 98.2; O2SAT 95
[2017-08-12] MEDS: hydrALAZINE HCL 25 MG TAB PO SCH (06:00)
[2017-08-12] MEDS: LEVOTHYROXINE SODIUM 112 MCG TAB PO SCH (06:00)
[2017-08-12 06:30] LABS: BASOPHIL % 0.4 % (0.0-2.0); EOSINOPHIL # 0.2 TH/MM3 (0-0.4); HEMATOCRIT 30.4 % (39.0-51.0); HEMO FLAGS DIFF FINAL; LYMPH % 3.5 % (9.0-44.0); LYMPHOCYTE # 0.4 TH/MM3 (1.0-4.8); MEAN CELL VOLUME 86.7 FL (80.0-100.0); MEAN CORPUSCULAR HEMOGLOBIN 28.1 PG (27.0-34.0); MEAN CORPUSCULAR HGB CONC 32.5 % (32.0-36.0); MONO % 8.9 % (0.0-8.0); NEUT % 85.2 % (16.0-70.0); PLATELET COUNT 209 TH/MM3 (150-450); RED BLOOD COUNT 3.51 MIL/MM3 (4.50-5.90); RED CELL DISTRIBUTION WIDTH 14.4 % (11.6-17.2); WHITE BLOOD COUNT 11.6 TH/MM3 (4.0-11.0)
[2017-08-12 06:40] LABS: POTASSIUM 3.1 MEQ/L (3.5-5.1)
[2017-08-12] MEDS ORDERED: POTASSIUM CHLORIDE 20 MEQ CONTROLLED RELEASE TAB PO SCH (06:45)
[2017-08-12 06:52] LABS: BICARBONATE 25.4 MEQ/L (21.0-32.0)
[2017-08-12 07:06] LABS: CALCIUM-PROTEIN CORRECTED 8.1 MG/DL (8.5-10.1)
[2017-08-12 08:00] VITALS: BP 160/83; PULSE 72; RESP 21; TEMP 96.1; O2SAT 94
[2017-08-12] MEDS: CARVEDILOL 12.5 MG TAB PO SCH (08:24)
[2017-08-12] MEDS: PRAVASTATIN SOD 40 MG TAB PO SCH (08:24)
[2017-08-12] MEDS: TAMSULOSIN HCL 0.4 MG CAP PO SCH (08:24)
[2017-08-12] MEDS: ASPIRIN 81 MG CHEW TAB CHEW SCH (08:24)
[2017-08-12] MEDS: PANTOPRAZOLE SOD 20 MG DELAYED RELEASE TAB PO SCH (08:25)
[2017-08-12] MEDS: LISINOPRIL 20 MG TAB PO SCH (08:25)
[2017-08-12] MEDS: CALCIUM CARBONATE 1.25 GM (CA 500 MG) TAB PO SCH ×2 (08:25→12:21)
[2017-08-12] MEDS: INSULIN ASPART SUPPLEMENTAL SCALE SQ SCH ×2 (08:43→12:21)
[2017-08-12] MEDS ORDERED: POTA20TA5 PO (11:48)
[2017-08-12] MEDS ORDERED: LISI-515 PO (11:48)
[2017-08-12] MEDS ORDERED: TAMS5CAP PO (11:48)
[2017-08-12] MEDS ORDERED: HYDR-3799 PO (11:48)
[2017-08-12] MEDS ORDERED: CALC500T30 PO (11:48)
--- NOTE | 2017-08-12 12:26 | HHI.DS ---
Discharge Summary Admission Date Aug 09, 2017 at 11:00 Discharge Date: Aug 12, 2017 Admitting Diagnosis kidney stone, dehydration (1) [id number] kidney injury Diagnosis: Principal ICD Codes: N17.9 - Acute kidney failure, unspecified; N18.9 - Chronic kidney disease, unspecified (2) Stage 4 chronic kidney disease Diagnosis: Secondary ICD Codes: N18.4 - Chronic kidney disease, stage 4 (severe) (3) Left ureteral calculus Diagnosis: Principal ICD Codes: N20.1 - Calculus of ureter (4) Nephrolithiasis Diagnosis: Principal ICD Codes: N20.0 - Calculus of kidney Status: Acute (5) Type 2 diabetes mellitus with diabetic nephropathy Diagnosis: Secondary ICD Codes: E11.21 - Type 2 diabetes mellitus with diabetic nephropathy (6) Essential (primary) hypertension Diagnosis: Secondary ICD Codes: I10 - Essential (primary) hypertension (7) Hyperlipidemia Diagnosis: Secondary ICD Codes: E78.5 - Hyperlipidemia, unspecified (8) Hypothyroidism Diagnosis: Secondary ICD Codes: E03.9 - Hypothyroidism, unspecified (9) Paraphimosis Diagnosis: Secondary ICD Codes: N47.2 - Paraphimosis (10) Urinary retention Diagnosis: Secondary ICD Codes: R33.9 - Retention of urine, unspecified (11) Hypokalemia Diagnosis: Secondary ICD Codes: E87.6 - Hypokalemia (12) Hypocalcemia Diagnosis: Secondary ICD Codes: E83.51 - Hypocalcemia (13) CLL (chronic lymphocytic leukemia) Diagnosis: Secondary ICD Codes: C91.10 - Chronic lymphocytic leukemia of B-cell type not having achieved remission (14) GERD (gastroesophageal reflux disease) Diagnosis: Secondary ICD Codes: K21.9 - Gastro-esophageal reflux disease without esophagitis Consultants Urology (Dr Mccartney) Nephrology (Dr Cho) Procedures Cystoscopy, left retrograde pyelogram, insertion of left ureteral stent, and reduction of paraphimosis on 08-10-17 Brief History 76 year old white male who presented to the ER on 08-06-17 with left lower quadrant abdominal and flank pain that had started earlier in the day. He had several episodes of vomiting but had no diarrhea, rectal bleeding. A CT scan of the abdomen showed a 4-5mm calculus in the proximal left ureter with mild hydronephrosis. He was admitted for pain control and IV fluids because of acute kidney injury on top of his chronic kidney disease and also possible dehydration from his vomiting. A urology consult was placed. He has underlying type 2 diabetes mellitus with nephropathy, hypertension, hyperlipidemia. hypothyroidism, GERD, diverticulosis, CLL (followed for years by hematology and stable), mild bilateral carotid plaque , coronary artery disease with prior MO and CABG in 2005. CBC/BMP: 08/12/17 0610 08/12/17 0610 Significant Findings Laboratory Tests Test 08/06/17 20:35 08/07/17 03:30 08/11/17 06:50 08/12/17 06:10 Platelet Estimate NORMAL Platelet Morphology Comment CLUMPED Red Cell Morphology Comment NORMAL Blood Urea Nitrogen 33 MG/DL 46 MG/DL 44 MG/DL Creatinine 2.40 MG/DL 3.20 MG/DL 2.60 MG/DL Random Glucose 171 MG/DL 137 MG/DL 161 MG/DL Total Protein 6.6 GM/DL 5.8 GM/DL 5.7 GM/DL Albumin 3.2 GM/DL Calcium Level 7.7 MG/DL 7.0 MG/DL 7.3 MG/DL Alkaline Phosphatase 93 U/L Aspartate Amino Transf (AST/SGOT) 18 U/L Alanine Aminotransferase (ALT/SGPT) 18 U/L Total Bilirubin 0.5 MG/DL Sodium Level 137 MEQ/L 139 MEQ/L 139 MEQ/L Potassium Level 3.9 MEQ/L 3.2 MEQ/L 3.1 MEQ/L Chloride Level 99 MEQ/L 103 MEQ/L 103 MEQ/L Carbon Dioxide Level 30.1 MEQ/L 23.7 MEQ/L 25.4 MEQ/L Lipase 310 U/L Urine Color YELLOW Urine Turbidity CLEAR Urine pH 5.5 Urine Specific [place] 1.015 Urine Protein 300 OR GREATER mg/dL Urine Glucose (UA) NEG mg/dL Urine Ketones NEG mg/dL Urine Occult Blood SMALL Urine Nitrite NEG Urine Bilirubin NEG Urine Leukocyte Esterase NEG Urine RBC 0-3 /hpf Urine WBC 0-2 /hpf Urine Squamous Epithelial Cells 0-5 /hpf Microscopic Urinalysis Comment CULT NOT INDICATED Magnesium Level 1.2 MG/DL White Blood Count 11.6 TH/MM3 Red Blood Count 3.51 MIL/MM3 Hemoglobin 9.9 GM/DL Hematocrit 30.4 % Mean Corpuscular Volume 86.7 FL Mean Corpuscular Hemoglobin 28.1 PG Mean Corpuscular Hemoglobin Concent 32.5 % Red Cell Distribution Width 14.4 % Platelet Count 209 TH/MM3 Mean Platelet Volume 7.9 FL Neutrophils (%) (Auto) 85.2 % Lymphocytes (%) (Auto) 3.5 % Monocytes (%) (Auto) 8.9 % Eosinophils (%) (Auto) 2.0 % Basophils (%) (Auto) 0.4 % Neutrophils # (Auto) 10.0 TH/MM3 Lymphocytes # (Auto) 0.4 TH/MM3 Monocytes # (Auto) 1.0 TH/MM3 Eosinophils # (Auto) 0.2 TH/MM3 Basophils # (Auto) 0.0 TH/MM3 CBC Comment DIFF FINAL Differential Comment Anion Gap 11 MEQ/L Estimat Glomerular Filtration Rate 24 ML/MIN Protein Corrected Calcium 8.1 MG/DL Laboratory Tests Test 08/10/17 06:40 08/11/17 06:50 08/12/17 06:10 White Blood Count 13.9 TH/MM3 (4.0-11.0) 12.7 TH/MM3 (4.0-11.0) 11.6 TH/MM3 (4.0-11.0) Red Blood Count 3.57 MIL/MM3 (4.50-5.90) 3.66 MIL/MM3 (4.50-5.90) 3.51 MIL/MM3 (4.50-5.90) Hemoglobin 9.9 GM/DL (13.0-17.0) 10.2 GM/DL (13.0-17.0) 9.9 GM/DL (13.0-17.0) Hematocrit 30.7 % (39.0-51.0) 31.2 % (39.0-51.0) 30.4 % (39.0-51.0) Neutrophils (%) (Auto) 86.5 % (16.0-70.0) 84.0 % (16.0-70.0) 85.2 % (16.0-70.0) Lymphocytes (%) (Auto) 3.9 % (9.0-44.0) 3.9 % (9.0-44.0) 3.5 % (9.0-44.0) Monocytes (%) (Auto) 8.5 % (0.0-8.0) 8.7 % (0.0-8.0) 8.9 % (0.0-8.0) Neutrophils # (Auto) 12.1 TH/MM3 (1.8-7.7) 10.6 TH/MM3 (1.8-7.7) 10.0 TH/MM3 (1.8-7.7) Lymphocytes # (Auto) 0.5 TH/MM3 (1.0-4.8) 0.5 TH/MM3 (1.0-4.8) 0.4 TH/MM3 (1.0-4.8) Monocytes # (Auto) 1.2 TH/MM3 (0-0.9) 1.1 TH/MM3 (0-0.9) 1.0 TH/MM3 (0-0.9) Blood Urea Nitrogen 42 MG/DL (7-18) 46 MG/DL (7-18) 44 MG/DL (7-18) Creatinine 3.50 MG/DL (0.60-1.30) 3.20 MG/DL (0.60-1.30) 2.60 MG/DL (0.60-1.30) Random Glucose 137 MG/DL (74-106) 137 MG/DL (74-106) 161 MG/DL (74-106) Total Protein 5.6 GM/DL (6.4-8.2) 5.8 GM/DL (6.4-8.2) 5.7 GM/DL (6.4-8.2) Calcium Level 6.7 MG/DL (8.5-10.1) 7.0 MG/DL (8.5-10.1) 7.3 MG/DL (8.5-10.1) Estimat Glomerular Filtration Rate 17 ML/MIN (>89) 19 ML/MIN (>89) 24 ML/MIN (>89) Protein Corrected Calcium 7.4 MG/DL (8.5-10.1) 7.7 MG/DL (8.5-10.1) 8.1 MG/DL (8.5-10.1) Magnesium Level 1.2 MG/DL (1.5-2.5) Potassium Level 3.2 MEQ/L (3.5-5.1) 3.1 MEQ/L (3.5-5.1) Imaging Last Impressions Chest X-Ray 08/11/17 0600 Signed Impressions: Service Date/Time: July 02:53 - CONCLUSION: 1. Minimal basilar atelectasis and scarring at the left costophrenic angle. [id number] in superior vena cava. Mode Graham MD Abdomen X-Ray 08/07/17 0000 Signed Impressions: Service Date/Time: Monday, August 07, 2017 09:44 - CONCLUSION: Given the overlying bowel gas and stool along with patient body habitus along with the small size of the stones, the left ureteral stones are not visualized. If there is a current need to evaluate the position we could perform low dose CT. Agustin Reed MD Abdomen/Pelvis CT 08/06/17 0000 Signed Impressions: Service Date/Time: Sunday, August 06, 2017 21:43 - CONCLUSION: 1. 4-5mm calculus in the proximal left ureter with mild hydronephrosis. 2. Mild diverticulosis. 3. 2 left renal calculi. Nate Celeste MD PE at Discharge Exam: [id number] in no distress HEENT: Pupils equal, no scleral icterus, mouth negative Heart: RRR Lungs: No wheezes heard today Abdomen: soft, nontender Extremities: No edema Neuro: Alert, oriented. Hospital Course Patient was admitted and a urologist was consulted for his ureteral calculus. He was put on IV fluids as well and given antiemetics as needed. His diabetes was managed by a sliding scale coverage. Patient's kidney function worsened in the hospital so a quality control expert was consulted and he was seen by Dr Cho. Because the stone was not passing and he still had pain Dr Mccartney took him to the OR on 08-10-17 and put in a left ureteral stent and left retrograde pyelogram which showed hydronephrosis. A reduction of a paraphimosis was done also. He had a zee left in because he had experienced urinary retention prior to the procedure. His kidney function is starting to improve and I talked with Dr Cho who cleared him for discharge today. I also talked with Dr Mccartney who cleared him for discharge with the Zee cath and he will followup next week to continue to manage his stones. He will be discharge to followup with me on 08-16-17 at 8:00. I will have him do a CBC and BMP on 10-2-17 to recheck his kidney function and CBC. His Metformin has been stopped because of his low GFR. His diuretic (HCTZ) was stopped also when he came in the hospital. Dr Cho added Hydralazine for his BP control while he was in the hospital. Patient had no further pain and wanted to go home. Pt Condition on Discharge: Stable Discharge Disposition: Discharge Home Discharge Instructions DIET: Follow Instructions for: Diabetic Diet Additional Diet Instructions: Low sodium (no added salt) Low cholesterol diet. Activities you can perform: Regular-No Restrictions Follow up Referrals: PCP Follow-up - 3-[address] Blu Oh Urology - 3-5 Days with Ramiro Mccartney MD New Orders: BASIC METABOLIC PROF - 2-3 Days CBC WITH DIFF - 2-3 Days New Medications: Hydralazine HCl (Hydralazine HCl) 25 Mg Tablet 25 MG PO Q8HR for hypertension, #90 TAB 1 Refill Lisinopril (Lisinopril) 20 Mg Tab 20 MG PO BID for hypertension, #60 TAB 3 Refills Oyster Shell (Calcium Oyster Shell) 500 Mg Calcium (1250 Mg) Tab 500 MG PO TID for hypocalcemia, #100 TAB Potassium Chloride Microencaps (Potassium Chloride Microencaps) 20 Meq Tab 20 MEQ PO DAILY for hypokalemia, #30 TAB Tamsulosin (Flomax) 0.4 Mg Cap 0.4 MG PO DAILY for urinary difficulty, #30 CAP Continued Medications: Aspirin (Aspirin) 81 Mg Chew 81 MG CHEW DAILY, TAB 0 Refills Carvedilol (Carvedilol) 25 Mg Tab 25 MG PO DAILY, #60 TAB 0 Refills Cholecalciferol (Vitamin D) 2,000 Unit Cap 1000 PO DAILY Glimepiride (Glimepiride) 4 Mg Tab 4 MG PO BIDAC for Blood Sugar Management, #60 TAB 0 Refills Insulin Aspart Inj (Novolog Inj) 1,000 Unit/10 Ml Vial 22 UNITS SQ DAILY for Blood Sugar Management, #10 ML 0 Refills Insulin Glargine Inj (Lantus Inj) 1,000 Unit/10 Ml Vial 50 UNITS SQ HS for Blood Sugar Management, VIAL 0 Refills Levothyroxine (Levothyroxine) 125 Mcg Tab 112 MCG PO DAILY for Thyroid, #30 TAB 0 Refills Omeprazole (Omeprazole) 20 Mg Tab 20 MG PO DAILY, #30 TAB 0 Refills Simvastatin (Simvastatin) 20 Mg Tab 20 MG PO BID for Cholesterol Management, #30 TAB 0 Refills Discontinued Medications: Hydrochlorothiazide (Hydrochlorothiazide) 25 Mg Tab 25 MG PO DAILY, #30 TAB 0 Refills Insulin Glargine Inj (Toujeo Solostar Pen Inj) 300 Unit/Ml Pen 1 UNITS SQ for Blood Sugar Management, PEN 0 Refills Lisinopril (Lisinopril) 20 Mg Tab 20 MG PO DAILY, #30 TAB 0 Refills Metformin (Metformin) 1,000 Mg Tab 1000 MG PO HS for Blood Sugar Management, #60 TAB 0 Refills With meals Pb Oh MD Aug 12, 2017 12:26
== END 2017-08-12 14:14 | disposition home or self-care (01) | DRG 694 ==
LOC: PHED 19:14 → PHEDA 22:22 → INTOOBSV 22:22 → PH3B 23:55 → OBSVTOIN 08-09 11:00
PROVIDERS: ADMIT Family Medicine; ATTEND Family Medicine
PROC: BT1F1ZZ Fluoroscopy of Left Kidney, Ureter and Bladder using Low Osmolar Contrast (ICD-10-PCS; 2017-08-10)
PROC: 0T778DZ Dilation of Left Ureter with Intraluminal Device, Via Natural or Artificial Opening Endoscopic (ICD-10-PCS; principal; 2017-08-10 12:39)
DX: N13.2 Hydronephrosis with renal and ureteral calculous obstruction (principal); C91.10 Chronic lymphocytic leukemia of B-cell type not having achieved remission; E11.22 Type 2 diabetes mellitus with diabetic chronic kidney disease; N17.9 Acute kidney failure, unspecified; N18.4 Chronic kidney disease, stage 4 (severe); I65.23 Occlusion and stenosis of bilateral carotid arteries; E03.9 Hypothyroidism, unspecified; I25.10 Atherosclerotic heart disease of native coronary artery without angina pectoris; E86.0 Dehydration; E87.6 Hypokalemia; E83.51 Hypocalcemia; K57.30 Diverticulosis of large intestine without perforation or abscess without bleeding; M19.90 Unspecified osteoarthritis, unspecified site; K21.9 Gastro-esophageal reflux disease without esophagitis; E78.5 Hyperlipidemia, unspecified; K59.00 Constipation, unspecified; N47.2 Paraphimosis; R33.8 Other retention of urine; I12.9 Hypertensive chronic kidney disease with stage 1 through stage 4 chronic kidney disease, or unspecified chronic kidney disease; Z79.82 Long term (current) use of aspirin; Z79.4 Long term (current) use of insulin; Z79.84 Long term (current) use of oral hypoglycemic drugs; Z95.1 Presence of aortocoronary bypass graft; Z87.891 Personal history of nicotine dependence; I25.2 Old myocardial infarction
CPT/HCPCS: 71010; 71020; 74000; 74176; 74420; 76000; 80048; 80053; 81001; 82948; 83690; 83735; 84155; 85025; 85027; 93005; 94640; 94664; 96361; 96365; 96372; 96375; 96376; C2617; G0378; J0744; J1815; J1940; J2270; J2405; J3475; J7030; J7040; Q9967